=== PATIENT | male | born 1970 | race Caucasian/White ===

== ENCOUNTER → 2017-12-21 06:55 | Outpatient (CLI) | payer OTHER, SELFPAY ==
--- NOTE | 2017-12-21 10:55 | NEURO_ITS ---
NCS and/or EMG Patient Report Ordering Doctor: Divina Hardy DATE OF SERVICE: 12/21/17 This is a bilateral upper extremity nerve conduction study performed on this 47- year-old female with a history of sensations in her hands bilaterally worse on the right side which awaken her from sleep, present for 2 years. There is no neck pain. Bilateral upper extremity sensory and motor nerve conduction studies performed. The median motor and sensory distal latencies are prolonged bilaterally more so on the right side. Amplitudes are preserved however conduction velocities are slowed again more so on the right side. The ulnar motor and sensory and radial sensory responses are normal bilaterally. The median F-wave latencies are prolonged compared to the ulnar F wave latencies. Impression: This is an abnormal electrophysiologic study of the bilateral upper extremities consistent with severe carpal tunnel syndrome bilaterally worse on the right side.
== END ==
PROVIDERS: Family Provider Family Medicine; PCP Family Medicine; Visit Provider Family Medicine
DX: G56.03 Carpal tunnel syndrome, bilateral upper limbs (principal)
CPT/HCPCS: 95911

== ENCOUNTER → 2023-06-07 | Outpatient (CLI) | payer OTHER, MEDICAID, SELFPAY ==
--- OUTSIDE RECORDS SUMMARY | 2023-05-10 12:52 | XMS RPT_ITS | CCD ---
Author Name Unknown Address [address] [place] [address] Organization [facility] Care Team Providers Care Wood Die Maker Name Role Phone Antony DO, [facility] Pro vider MICHAEL CERNA Admitting Unavailab le MICHAEL CERNA Attending Unavailab le SHEETS, [facility] Primary Care Kita vailable SALINASMIKE Attending Unavailable SHEETS, [facility] Primary Care Kita vailable SALINASMIKE Admitting Unavailable SALINAS, MIKE HARRINGTON Referring Unavailable SHEETS, [facility] Primary Care Kita vailable SALINASMIKE Admitting Unavailable SALINAS, MIKE HARRINGTON Referring Unavailable SHEETS, [facility] Primary Care Kita vailable SALINASMIKE THOMPSON Attending Unavailable SHEETS, [facility] Primary Care Kita vailable HUSAM GOODWIN Attending Unavailable SHEETS, [facility] Primary Care Kita vailable MICHAEL CERNA Attending Unavailab le SHEETS, [facility] Primary Care Kita vailable BRUCE JR., SKY Attending Unavailable SHEETS, [facility] Primary Care Kita vailable BRUCE JR., SKY Admitting Unavailable BRUCE JR., SKY Referring Unavailable SHEETS, [facility] Primary Care Kita vailable BRUCE JR., SKY Admitting Unavailable BRUCE JR., SKY Referring Unavailable SHEETS, [facility] Primary Care Kita vailable MICHAEL CERNA Attending Unavailab le SHEETS, [facility] Primary Care Kita vailable BRUCE JR., SKY Attending Unavailable SHEETS, [facility] Primary Care Kita vailable Sheets DO, Kathleen Crane Primary Care Provider Sheets DO, Kathleen Crane Primary Care Provider [phone] Sheets DO, Kathleen Crane Primary Care Provider PROVIDER, UNKNOWN Referring Unavailable SHEETS, KATHLEEN Crane Primary Care Unavailable VALELIZABETH Attending Unavailable JUSTIN WHITNEY Referring Unavailable SHEETS, KATHLEEN Crane Primary Care Unavailable JUSTIN WHITNEY Referring Unavailable SHEETS, KATHLEEN C Primary Care Unavailable Sheets DO, Kathleen Crane Primary Care Provider SHEETS, KATHLEEN C Primary Care Unavailable OLLIE, OANH A Referring Unavailable OLLIE, OANH A Attending Unavailable SHEETS, KATHLEEN Crane Attending Unavailable SHEETS, KATHLEEN Crane Primary Care Unavailable SHEETS, KATHLEEN Crane Attending Unavailable SHEETS, KATHLEEN Crane Primary Care Unavailable Allergies Allergy Classification Reported Allergen(s) Allergy Type Date of Onset Reaction(s) Facility (20 sources) Menthol; Translations: [MENTHOL] Drug Allergy 2 Unknown [facility] (13 sources) Non-steroidal anti-inflammator y agent; Translations: [NSAIDS (NON-STEROIDAL ANTI-INFLAMMATOR Y DRUG)] Propensity to adverse reactions to drug 6 Unknown [facility] (12 sources) Non-steroidal anti-inflammator y agent Propensity to adverse reactions to drug 6 Unknown [facility] Medications Current Medications Medication Drug Class(es) Dates Sig (Normalized) Sig (Original) acetaminophen 325 mg oral tablet (2 sources) End: 07-16-2021 take 2 tablets by mouth every six hours as needed acetaminophen (TYLENOL) 325 mg tablet Take 650 mg by mouth every 6 hours as needed. 0 07/16/2021 Discontinued (Other) Completed/Discontinued Medications Medication Drug Class(es) Dates Sig (Normalized) Sig (Original) bisacodyl 5 mg delayed release oral tablet (7 sources) Stimulant Laxative Start: 06-25-2021 End: 12-19-2021 Bisacodyl (DULCOLAX) 5 mg tab Use as directed for Miralax / Gatorade Bowel Prep Kit 4 tablet 0 06/25/2021 12/19/2021 Discontinued (Course of therapy completed) Problems Active Problems Problem Classification Problem Date Documented Da te Episodic/Chronic Acquired foot deformities (1 source) Bunion; Translations: [Bunion of left foot] Episodic Acquired foot deformities (1 source) Bunion; Translations: [Bunion of right foot] Episodic Essential hypertension (20 sources) Essential hypertension; Translations: [Essential (primary) hypertension] Onset: 04-17-2016 02-18-2021 Chronic Nonspecific chest pain (3 sources) Chest pain; Translations: [Chest pain, unspecified] Onset: 12-18-2021 Episodic Osteoarthritis (1 source) Bilateral osteoarthritis of feet; Translations: [Primary osteoarthritis, right ankle and foot] Chronic Other ear and sense organ disorders (20 sources) Sensorineural hearing loss, bilateral; Translations: [Sensorineural hearing loss, bilateral] Onset: 03-23-2018 02-18-2021 Chronic Other ear and sense organ disorders (15 sources) Otitis externa of left ear; Translations: [Unspecified otitis externa, left ear] Onset: 06-13-2021 06-13-2021 Chronic Other gastrointestinal disorders (1 source) Heartburn; Translations: [Heartburn] Episodic Other liver diseases (15 sources) Steatosis of liver; Translations: [Fatty (change of) liver, not elsewhere classified] Onset: 07-16-2021 Chronic Other liver diseases (1 source) Fatty (change of) liver, not elsewhere classified; Translations: [Fatty liver] Onset: 07-16-2021 Chronic Other lower respiratory disease (1 source) Respiratory tract infection; Translations: [Other specified respiratory disorders] Episodic Other male genital disorders (19 sources) Secondary erectile dysfunction; Translations: [Male erectile dysfunction, unspecified] Onset: 11-06-2016 02-18-2021 Chronic Other nervous system disorders (20 sources) Bilateral carpal tunnel syndrome; Translations: [Carpal tunnel syndrome, bilateral upper limbs] Onset: 04-29-2018 Chronic Other nutritional; endocrine; and metabolic disorders (20 sources) Body mass index 40+ - severely obese; Translations: [Morbid (severe) obesity due to excess calories] Onset: 11-19-2017 11-19-2017 Chronic Other nutritional; endocrine; and metabolic disorders (1 source) Body mass index (BMI) 50.0-59.9, adult; Translations: [BMI 50.0-59.9, adult ([facility])] Onset: 02-22-2020 Chronic Other nutritional; endocrine; and metabolic disorders (1 source) Morbid (severe) obesity due to excess calories; Translations: [Obesity, Class III, BMI 40-49.9 (morbid obesity) ([facility])] Onset: 11-19-2017 Chronic Residual codes; unclassified (20 sources) Sleep apnea; Translations: [Sleep apnea, unspecified] Onset: 07-05-2020 02-18-2021 Chronic Residual codes; unclassified (1 source) Sleep apnea, unspecified; Translations: [Sleep apnea, unspecified type] Onset: 07-05-2020 Chronic Past or Other Problems Problem Classification Problem Date Documented Da te Episodic/Chronic Other ear and sense organ disorders (15 sources) Bilateral tinnitus; Translations: [Tinnitus, bilateral] Onset: 03-23-2018 03-23-2018 Episodic Other lower respiratory disease (1 source) Other specified respiratory disorders; Translations: [Respiratory infection] Onset: 06-18-2022 Episodic Other non-traumatic joint disorders (15 sources) Pain in right knee; Translations: [Pain in joint, lower leg] Onset: 02-24-2019 02-24-2019 Episodic Other screening for suspected conditions (not mental disorders or infectious disease) (8 sources) Patient encounter status; Translations: [Encounter for screening for malignant neoplasm of colon] Onset: 07-16-2021 Episodic Other skin disorders (15 sources) Pigmented skin lesion of uncertain nature; Translations: [Disorder of pigmentation, unspecified] Onset: 04-29-2018 04-29-2018 Episodic Residual codes; unclassified (8 sources) Nicotine user; Translations: [Tobacco use] Onset: 06-18-2022 Episodic Residual codes; unclassified (1 source) Tobacco use; Translations: [Nicotine use] Onset: 06-18-2022 Episodic Results Test Name Value Interpretation Reference Range Facil ity Vital Signs Date Time Vital Sign Value Performing Clinician Faci litweston 06-18-2022 07:58-0400 Body height 177.8 cm Kathleen Sheets DO Work Phone: [facility] 06-18-2022 07:58-0400 Body temperature 98.4 [degF] Kathleen Sheets DO Work Phone: [facility] 06-18-2022 07:58-0400 Body weight 166.47 kg Kathleen Sheets DO Work Phone: [facility] 06-18-2022 07:58-0400 Diastolic blood pressure 70 mm[Hg] Kathleen Sheets DO Work Phone: [facility] 06-18-2022 07:58-0400 Heart rate 76 /min Kathleen Sheets DO Work Phone: [facility] 06-18-2022 07:58-0400 Respiratory rate 18 /min Kathleen Sheets DO Work Phone: [facility] 06-18-2022 07:58-0400 SaO2% (BldA) [Mass fraction] 94 % Kathleen Sheets DO Work Phone: [facility] 06-18-2022 07:58-0400 Systolic blood pressure 122 mm[Hg] Kathleen Sheets DO Work Phone: [facility] 12-19-2021 08:00-0400 Body height 177.8 cm Kathleen Sheets DO Work Phone: [facility] 12-19-2021 08:00-0400 Body temperature 98.2 [degF] Kathleen Sheets DO Work Phone: [facility] 12-19-2021 08:00-0400 Body weight 164.29 kg Kathleen Sheets DO Work Phone: [facility] 12-19-2021 08:00-0400 Diastolic blood pressure 72 mm[Hg] Kathleen Sheets DO Work Phone: [facility] 12-19-2021 08:00-0400 Heart rate 80 /min Kathleen Sheets DO Work Phone: [facility] 12-19-2021 08:00-0400 Respiratory rate 18 /min Kathleen Sheets DO Work Phone: [facility] 12-19-2021 08:00-0400 SaO2% (BldA) [Mass fraction] 96 % Kathleen Sheets DO Work Phone: [facility] 12-19-2021 08:00-0400 Systolic blood pressure 120 mm[Hg] Kathleen Hardy DO Work Phone: [facility] 2021 08:24-0400 Body height 177.8 cm Shilpa Kim [employer] Work Phone: [facility] 2021 08:24-0400 Body temperature 98.2 [degF] Shilpa Kim [employer] Work Phone: [facility] 2021 08:24-0400 Body weight 160.57 kg Shilpa Kim [employer] Work Phone: [facility] 2021 08:24-0400 Diastolic blood pressure 60 mm[Hg] Shilpa Kim [employer] Work Phone: [facility] 2021 08:24-0400 Heart rate 73 /min Shilpa Kim [employer] Work Phone: [facility] 2021 08:24-0400 Respiratory rate 18 /min Shilpa Kim [employer] Work Phone: [facility] 2021 08:24-0400 SaO2% (BldA) [Mass fraction] 95 % Shilpa Kim [employer] Work Phone: [facility] 2021 08:24-0400 Systolic blood pressure 100 mm[Hg] Shilpa Kim [employer] Work Phone: [facility] 08-04-2021 11:00-0400 Diastolic blood pressure 51 mm[Hg] Justin Whitney MD Work Phone: [facility] 08-04-2021 11:00-0400 Heart rate 76 /min Justin Whitney MD Work Phone: [facility] 08-04-2021 11:00-0400 SaO2% (BldA) [Mass fraction] 97 % Justin Whitney MD Work Phone: [facility] 08-04-2021 11:00-0400 Systolic blood pressure 98 mm[Hg] Justin Whitney MD Work Phone: [facility] 08-04-2021 10:42-0400 Body temperature 98.4 [degF] Justin Whitney MD Work Phone: [facility] 08-04-2021 08:47-0400 Respiratory rate 18 /min Justin Whitney MD Work Phone: [facility] 07-16-2021 08:09-0400 Body height 180.3 cm Pacc 2 Work Phone: [facility] 07-16-2021 08:09-0400 Body temperature 98.2 [degF] Pacc 2 Work Phone: [facility] 07-16-2021 08:09-0400 Body weight 163.29 kg Pacc 2 Work Phone: [facility] 07-16-2021 08:09-0400 Diastolic blood pressure 70 mm[Hg] Pacc 2 Work Phone: [facility] 07-16-2021 08:09-0400 Heart rate 92 /min Pacc 2 Work Phone: [facility] 07-16-2021 08:09-0400 Respiratory rate 18 /min Pacc 2 Work Phone: [facility] 07-16-2021 08:09-0400 SaO2% (BldA) [Mass fraction] 96 % Pacc 2 Work Phone: [facility] 07-16-2021 08:09-0400 Systolic blood pressure 118 mm[Hg] Pacc 2 Work Phone: [facility] 06-25-2021 08:24-0400 Body height 177.8 cm Justin Whitney MD Work Phone: [facility] 06-25-2021 08:24-0400 Body weight 163.29 kg Justin Whitney MD Work Phone: [facility] 06-25-2021 08:24-0400 Diastolic blood pressure 70 mm[Hg] Justin Whitney MD Work Phone: [facility] 06-25-2021 08:24-0400 Heart rate 90 /min Justin Whitney MD Work Phone: [facility] 06-25-2021 08:24-0400 Systolic blood pressure 108 mm[Hg] Justin Whitney MD Work Phone: [facility] 03-07-2021 14:46-0500 Body temperature 98.2 [degF] Sky Bruce Jr., DPM Work Phone: [facility] 03-07-2021 14:46-0500 Diastolic blood pressure 74 mm[Hg] Sky Bruce Jr., DPM Work Phone: [facility] 03-07-2021 14:46-0500 Heart rate 103 /min Sky Bruce Jr., DPM Work Phone: [facility] 03-07-2021 14:46-0500 Systolic blood pressure 120 mm[Hg] Sky Bruce Jr., DPM Work Phone: [facility] 12-23-2020 14:39-0400 Body height 180.3 cm Mike Salinas CNP Work Phone: [facility] 12-23-2020 14:39-0400 Body mass index (BMI) [Ratio] 48.82 kg/m2 Mike Salinas CNP Work Phone: [facility] 12-23-2020 14:39-0400 Body weight 158.76 kg Mike Salinas CNP Work Phone: [facility] Encounters Encounter Date Encounter Type Care Provider Facility Start: 05-04-2023 End: 05-04-2023 ambulatory KATHLEEN C SHEETS Facility:[facility] Start: 01-29-2023 End: 01-29-2023 ambulatory KATHLEEN C SHEETS Facility:[facility] Start: 01-29-2023 End: 01-29-2023 Patient encounter procedure Oanh Cuellar AUD Work Phone: Audiology Procedures Date Procedure Procedure Detail Performing Clinician Start: 12-18-2021 Cv strs tst xers&/or rx cont ecg trcg only Shilpa Gutierrez Kim [employer] Work Phone: Start: 08-04-2021 Colon ca scrn not hi rsk ind Justin Whitney MD Work Phone: Start: 08-04-2021 Colonoscopy Justin kennedy MD Work Phone: Start: 06-13-2021 Adult depression screening assessment Justin Whitney MD Work Phone: Start: 06-13-2021 Lipid 1996 panel - S philipp or Plasma Trinity Calero AUD Work Phone: H/O: surgery S/p bilateral ca rpal tunnel release Michael Cerna MD Work Phone: Plan of Treatment Date Care Activity Detail Author Start: 09-03-2030 Tetanus vaccination Tetanus: Every 10yrs [facility] Start: 09-03-2030 Urine microalbumin profile [facility] Start: 08-04-2026 Colonoscopy COLONOSCOPY [facility] Start: 08-04-2026 COLORECTAL CANCER SCREENING COLORECTAL CANCER SCREENING [facility] Start: 06-13-2026 Lipid 1996 panel - Serum or Plasma Lipid Screening [facility] Start: 06-13-2026 LIPID SCREEN LIPID SCREEN [facility] Start: 10-10-2024 DIABETES SCREEN DIABETES SCREEN [facility] Start: 10-10-2024 Diabetes Screening Diabetes Screening [facility] Start: 06-13-2024 DIABETES SCREEN DIABETES SCREEN [facility] Start: 06-19-2023 ANNUAL PCP TEAM CHRONIC DISEASE VISIT ANNUAL PCP TEAM CHRONIC DISEASE VISIT [facility] Start: 06-19-2023 BP CONTROLLED (<130/80) BP CONTROLLED (<130/80) [facility] in Start: 01-14-2023 End: 03-16-2023 CBC panel - Blood by Automated count CBC Lab Routine Essential hypertension Expected: 01/14/2023, Expires: 03/16/2023 [facility] Work Phone: Immunizations Immunization Date Immunization Notes Care Provider Ricky joel 09-03-2020 tetanus toxoid, redu robb diphtheria toxoid, and acellular pertussis vaccine, adsorbed Justin Whitney MD Work Phone: [facility] Work Phone: 08-23-2020 tetanus toxoid, redu robb diphtheria toxoid, and acellular pertussis vaccine, adsorbed Justin Whitney MD Work Phone: [facility] 08-01-2020 COVID-19 vaccine, fu ll dose (MODERNA) Justin Whitney MD Work Phone: [facility] 07-04-2020 COVID-19 vaccine (UNSPECIFIED) Justin Whitney MD Work Phone: [facility] 04-05-2010 tetanus toxoid, redu robb diphtheria toxoid, and acellular pertussis vaccine, adsorbed Justin Whitney MD Work Phone: [facility] 11-06-2004 tetanus toxoid, adsorbed Justin Whitney MD Work Phone: [facility] Payers Date Payer Category Payer Unknown [id number] 2020 Unknown [id number] 2020 Unknown [id number] 2020 Unknown [id number] 1969 Unknown [id number] 2.16. [id number] 1969 Unknown [id number] 2.16. [id number] 1969 Unknown [id number] 2.16. [id number] 1969 Unknown [id number] 2.16. [id number] 1969 Unknown [id number] 2.16. [id number] 1969 Unknown [id number] 2.16. [id number] 1969 Unknown [id number] 2.16. [id number] 1969 Unknown [id number] 2.16. [id number] 1969 Unknown [id number] 2.16. [id number] 1969 Unknown [id number] 2.16. [id number] 1969 Unknown [id number] 2.16. [id number] 1969 Unknown [id number] 2.16. [id number] Social History Date Type Detail Facility Start: 12-23-2020 End: 07-16-2021 Tobacco smoking status ILIS Ex-smoker [facility] Start: 12-23-2020 Tobacco use and exposure User of smokeless tobacco [facility] Start: 1970 Sex Assigned At Not on file [facility] Start: 06-15-2021 End: 12-18-2021 Exposure to SARS-CoV-2 (event) Not sure [facility] Start: 04-05-1987 End: 04-05-1996 History of tobacco use Current smoker [facility] History of tobacco use Chews Tobacco [facility] Start: 06-25-2021 End: 06-18-2022 Alcohol intake Ex-drinker (finding) [facility] Start: 04-05-1987 End: 04-05-1996 History of tobacco use Cigarette Smoker [facility] Start: 1970 Sex Assigned At Male C [facility] Start: 07-16-2021 End: 04-30-2022 Cigarettes smoked current (pack per day) - Reported 1 [facility] Work Phone: Start: 07-16-2021 Tobacco use and exposure Former smokeless tobacco user [facility] Start: 04-30-2022 End: 06-18-2022 Tobacco use panel [facility] Work Phone: Adult Depression Screening Assessment 0 [facility] Work Phone: Start: 07-14-2021 Gender identity Identifies as male gender (finding) [facility] Clinical Notes 04-17-2016 to 05-04-2023 Oanh Cuellar AUD - 02/01/2023 8:02 AM EDTTelephone Encounter - Zahra Ervin - 01/29/2023 3:29 PM EDTTelephone Encounter - Coby Khan MA - 01/14/2023 11:51 AM EDTPatient Instructions Note Date & Type Note Facility 05-04-2023 Note HNO ID: [id number] Author: KATHLEEN HARDY, DO Service: ? Author Type: Physician Type: Progress Notes Filed: 05/08/2023 12:21 Note Text: Subjective The history is provided by the patient. Hypertension This is a chronic problem. The current episode started more than 1 year ago. The problem is unchanged. Pertinent negatives include no blurred vision, chest pain, headaches, malaise/fatigue, palpitations or shortness of breath. He has had right shoulder pain recently He has a history of rotator cuff surgery when he was 18, but it dislocated a couple of weeks ago when he was sleeping. The pain is improving, but it still hurts He fell onto his bottom a couple of weeks ago His left hip still hurts, but it is getting better He has been having a hard time sleeping He has taken OTC meds, but they made him feel fuzzy in the morning He uses nicotine gum ALLERGIES Allergen Reactions Menthol Unknown Nsaids (Non-Steroid* Unknown Facial swelling Current Outpatient Medications Medication Sig Dispense Refill triamcinolone acetonide (NASACORT) 55 mcg nasal inhaler Use 2 Sprays in the nose once daily as needed. lisinopril-hydroCHLOROthiazide (ZESTORETIC) 20-25 mg per tablet take 2 tablets by mouth once daily 180 tablet 0 sildenafil (VIAGRA) 50 mg tablet Take 1 tablet by mouth once daily as needed. 6 tablet 11 omeprazole (PRILOSEC) 20 mg capsule Take 1 capsule by mouth once daily. (Patient not taking: Reported on 05/04/2023) 30 capsule 1 No current facility-administered medications for this visit. ACTIVE PROBLEM LIST Essential Hypertension Ed (Erectile Dysfunction) of Organic Origin Obesity, Class III, BMI >= 40 Sensorineural Hearing Loss, Bilateral Tinnitus, Bilateral Carpal Tunnel Syndrome, Bilateral Pigmented Skin Lesion of Uncertain Nature Chronic Pain of Right Knee Bmi 50.0-59.9, Adult ([facility]) Sleep Apnea Left Otitis Externa Fatty Liver Nicotine Use Social History Tobacco Use Smoking status: Former Packs/day: 1 Types: Cigarettes Start date: 04/05/1987 Quit date: 04/05/1996 Years since quittin.0 Smokeless tobacco: Former Types: Chew Tobacco comments: Quit using tobacco; chewing; Start date: 1981; Amount: 1 can per week Vaping Use Vaping Use: Never used Substance Use Topics Alcohol use: Not Currently Comment: Type: beer; Has 6 drinks/week on average Drug use: No Family History Problem Relation Age of Onset Hyperlipidemia Mother Lung Cancer Mother lung Diabetes Father other (Cancer - other) Maternal Grandmother other (Lung cancer) Maternal Grandfather Reviewed past medical history, family history and surgeries. All medications and supplements were reviewed with the patient. Review of Systems Constitutional: Negative for chills, diaphoresis, fever, malaise/fatigue and weight loss. HENT: Negative for ear pain and hearing loss. Eyes: Negative for blurred vision and double vision. Respiratory: Negative for cough and shortness of breath. Cardiovascular: Negative for chest pain, palpitations and leg swelling. Gastrointestinal: Negative for constipation, diarrhea and heartburn. Genitourinary: Negative for dysuria and frequency. Musculoskeletal: Negative for back pain, falls, joint pain and myalgias. Skin: Negative for itching and rash. Neurological: Negative for dizziness, weakness and headaches. Endo/Heme/Allergies: Does not bruise/bleed easily. Psychiatric/Behavioral: Negative for depression and substance abuse. The patient does not have insomnia. Objective BP 122/72 Pulse 85 Temp 36.8 ?C (98.2 ?F) Resp 18 Ht 177.8 cm (5' 10 ) Wt (!) 168.3 kg (371 lb) SpO2 96% BMI 53.23 kg/m? Physical Exam Constitutional: Appearance: Normal appearance. He is obese. HENT: Head: Normocephalic and atraumatic. Nose: Nose normal. Mouth/Throat: Mouth: Mucous membranes are moist. Dentition: Normal dentition. Eyes: General: Lids are normal. Extraocular Movements: Extraocular movements intact. Conjunctiva/sclera: Conjunctivae normal. Pupils: Pupils are equal, round, and reactive to light. Neck: Thyroid: No thyroid mass or thyromegaly. Vascular: No carotid bruit. Trachea: Phonation normal. Cardiovascular: Rate and Rhythm: Normal rate and regular rhythm. Heart sounds: Normal heart sounds. No murmur heard. No friction rub. No gallop. Pulmonary: Effort: Pulmonary effort is normal. Breath sounds: Normal breath sounds. No wheezing or rales. Abdominal: General: Bowel sounds are normal. There is no distension. Palpations: Abdomen is soft. There is no mass. Tenderness: There is no abdominal tenderness. Musculoskeletal: General: No swelling or tenderness. Normal range of motion. Cervical back: Normal range of motion and neck supple. No edema. Lymphadenopathy: Cervical: No cervical adenopathy. Skin: General: Skin is warm and dry. Findings: No erythema or rash. Nails: There is no clubbin (more content not included)... [facility] 02-01-2023 Note HNO ID: [id number] Author: Oanh Cuellar AUD Service: ? Author Type: Spike Machine Feeder Type: Progress Notes Filed: 02/01/2023 8:03 AM Note Text: HEARING AID REPAIR RIGHT: Bob M70 13T SN: [id number] Glue Bone Drier/Dome: 1M/M-vented Repair: 09/06/2020 LANDD: 09/06/2020 LEFT: Bob M70 13T SN: [id number] Glue Bone Drier/Dome: 1M/M-vented Repair: 09/06/2020 LANDD: 09/06/2020 Patient picked up repaired aids from the supervisor front. Jin was not seen by audiology today. Jin paid the $40.00 fee. Return PRN. Tanesha Dial [facility] 02-01-2023 History of Present illness Narrative HEARING AID REPAIR RIGHT: Bob M70 13T SN: [id number] Glue Bone Drier/Dome: 1M/M-vented Repair: 09/06/2020 L& LEFT: Bob M70 13T SN: [id number] Glue Bone Drier/Dome: 1M/M-vented Repair: 09/06/2020 L& Patient picked up repaired aids from the supervisor front. Jin was not seen by audiology today. Jin paid the $40.00 fee. Return PRN. Tanesha Dial documented in this encounter [facility] 01-29-2023 Miscellaneous Notes Patient came to worm picker hearing aide and paid 40.00 we added to your schedule documented in this encounter [facility] 01-14-2023 Miscellaneous Notes PT. Aware. Coby Khan MA Pt due for blood work - order attache Kathleen Hardy DO pharmacy electronically requesting refills as follows: Last seen 06/18/22 . Last refill 06/18/22 . Requested Prescriptions Pending Prescriptions Disp Refills lisinopril-hydroCHLOROthiazide (ZESTORETIC) 20-25 mg per tablet [Pharmacy Med Name: LISINOPRIL-HCTZ 20-25 MG TAB] 180 tablet 1 Sig: take 2 tablets by mouth once daily Please review and advise. Lindsay Linares MA documented in this encounter [facility] 12-22-2022 Miscellaneous Notes Closed, historical. Drop off,placed in box. documented in this encounter [facility] 09-03-2022 Miscellaneous Notes Nicholas Recall Replacement Program form to get patient a new BIPAP placed in Dr. Hardy green folder to be filled out and signed. Lindsay Linares MA documented in this encounter [facility] 09-01-2022 Miscellaneous Notes Durable Medical Equipment Order placed in Dr. Antony mccarthy folder to be filled out and signed. Lindsay Linares MA documented in this encounter [facility] 06-18-2022 Note HNO ID: [id number] Author: Kathleen Hardy, DO Service: ? Author Type: Physician Type: Progress Notes Filed: 06/18/2022 8:30 AM Note Text: SUBJECTIVE: 51 year old male for annual routine checkup. I have fully reviewed the past medical, surgical, social and family history and updated the Histories section of [facility]. Uses nicotine gum He and his are looking into joining a gym He was sick for a couple of days with respiratory illness Started to feel better yesterday Still has a slight cough ALLERGIES Allergen Reactions Menthol Unknown Nsaids (Non-Steroid* Unknown Facial swelling Current Outpatient Medications Medication Sig Dispense Refill lisinopril-hydroCHLOROthiazide (PRINZIDE, ZESTORETIC) 20-25 mg per tablet Take 2 tablets by mouth once daily. 180 tablet 1 sildenafil (VIAGRA) 50 mg tablet Take 1 tablet by mouth once daily as needed. 6 tablet 11 omeprazole (PRILOSEC) 20 mg capsule Take 1 capsule by mouth once daily. (Patient not taking: No sig reported) 30 capsule 1 No current facility-administered medications for this visit. ACTIVE PROBLEM LIST Essential Hypertension Ed (Erectile Dysfunction) of Organic Origin Obesity, Class III, BMI >= 40 Sensorineural Hearing Loss, Bilateral Tinnitus, Bilateral Carpal Tunnel Syndrome, Bilateral Pigmented Skin Lesion of Uncertain Nature Chronic Pain of Right Knee Bmi 50.0-59.9, Adult (Hcc) Sleep Apnea Left Otitis Externa Fatty Liver Social History Tobacco Use Smoking status: Former Packs/day: 1.00 Types: Cigarettes Start date: 04/05/1987 Quit date: 04/05/1996 Years since quittin.2 Smokeless tobacco: Former Types: Chew Tobacco comments: Quit using tobacco; chewing; Start date: 1981; Amount: 1 can per week Vaping Use Vaping Use: Never used Substance Use Topics Alcohol use: Not Currently Comment: Type: beer; Has 6 drinks/week on average Drug use: No Family History Problem Relation Age of Onset Hyperlipidemia Mother Lung Cancer Mother lung Diabetes Father other (Cancer - other) Maternal Grandmother other (Lung cancer) Maternal Grandfather Reviewed past medical history, family history and surgeries. All medications and supplements were reviewed with the patient. REVIEW OF SYSTEMS GENERAL: No weight loss, malaise or fevers HEENT: Negative for frequent or significant headaches, No changes in hearing or vision, no nose bleeds or other nasal problems NECK: Negative for lumps, goiter, pain and significant neck swelling RESPIRATORY: positive for cough, negative for hemoptysis, wheezing, COPD, dyspnea or shortness of breath CARDIOVASCULAR: Negative for chest pain, leg swelling, hypertension, CHF or palpitations GI: No nausea, vomiting, or diarrhea : No history of dysuria, frequency or incontinence MUSCULOSKELETAL: Negative for joint pain or swelling, back pain or muscle pain SKIN: Negative for lesions, rash, and itching PSYCH: Negative for sleep disturbance, mood disorder and recent psychosocial stressors HEMATOLOGY/LYMPHOLOGY: Negative for prolonged bleeding, bruising easily or swollen nodes ENDOCRINE: Negative for cold or heat intolerance, polyuria, polydipsia and goiter NEURO: No history of headaches, syncope, paralysis, seizures or tremors PHYSICAL EXAMINATION: BP 122/70 Pulse 76 Temp 36.9 ?C (98.4 ?F) Resp 18 Ht 177.8 cm (5' 10 ) Wt (!) 166.5 kg (367 lb) SpO2 94% BMI 52.66 kg/m? General appearance: Well appearing, alert, in no acute distress, well-hydrated, well nourished. Skin: Skin color, texture, turgor normal, no suspicious rashes or lesions Head: Normocephalic, no masses, lesions, tenderness or abnormalities Eyes: Anicteric sclera. Pupils are equally round and reactive to light. Extraocular movements are intact. Ears: External ears normal, canals clear Nose/Sinuses: Nares normal, septum midline, mucosa normal, no drainage or sinus tenderness Oropharynx: Lips, mucosa, and tongue normal, teeth and gums normal, oropharynx normal Neck: Supple, no adenopathy; thyroid symmetric, normal size, no bruits Back: Normal exam Lungs: wheezes in bases b/l on expiration Heart: RRR without murmur, gallop, or rubs. No ectopy Abdomen: Normal abdominal exam, Abdomen soft, non-tender. Bowel sounds normal. No masses, organomegaly Extremities: No deformities, edema, skin discoloration, clubbing or cyanosis. Good capillary refill. Musculoskeletal: No joint swelling, deformity, or tenderness Peripheral pulses: Normal Neuro: Gait normal. Reflexes normal and symmetric. Sensation grossly intact. ASSESSMENT/PLAN: 1. Well adult exam - ICD9: V70.0, ICD10: Z00.00 (primary diagnosis) - Counseled on healthy diet and regular exercise 2. Essential hypertension - ICD9: 401.9, ICD10: I10 - good control - Recommended regular aerobic exercise. - Recommend home blood pressure monitoring, to bring results in on next visit - Goal of BP <130/80 (more content not included)... [facility] 06-18-2022 History of Present illness Narrative SUBJECTIVE: 51 year old male for annual routine checkup. I have fully reviewed the past medical, surgical, social and family history and updated the Histories section of [employer]. Uses nicotine gum He and his are looking into joining a gym He was sick for a couple of days with respiratory illness Started to feel better yesterday Still has a slight cough ALLERGIES Allergen Reactions Menthol Unknown Nsaids (Non-Steroid* Unknown Facial swelling Current Outpatient Medications Medication Sig Dispense Refill lisinopril-hydroCHLOROthiazide (PRINZIDE, ZESTORETIC) 20-25 mg per tablet Take 2 tablets by mouth once daily. 180 tablet 1 sildenafil (VIAGRA) 50 mg tablet Take 1 tablet by mouth once daily as needed. 6 tablet 11 omeprazole (PRILOSEC) 20 mg capsule Take 1 capsule by mouth once daily. (Patient not taking: No sig reported) 30 capsule 1 No current facility-administered medications for this visit. ACTIVE PROBLEM LIST Essential Hypertension Ed (Erectile Dysfunction) of Organic Origin Obesity, Class III, BMI >= 40 Sensorineural Hearing Loss, Bilateral Tinnitus, Bilateral Carpal Tunnel Syndrome, Bilateral Pigmented Skin Lesion of Uncertain Nature Chronic Pain of Right Knee Bmi 50.0-59.9, Adult (Hcc) Sleep Apnea Left Otitis Externa Fatty Liver Social History Tobacco Use Smoking status: Former Packs/day: 1.00 Types: Cigarettes Start date: 04/05/1987 Quit date: 04/05/1996 Years since quittin.2 Smokeless tobacco: Former Types: Chew Tobacco comments: Quit using tobacco; chewing; Start date: 1981; Amount: 1 can per week Vaping Use Vaping Use: Never used Substance Use Topics Alcohol use: Not Currently Comment: Type: beer; Has 6 drinks/week on average Drug use: No Family History Problem Relation Age of Onset Hyperlipidemia Mother Lung Cancer Mother lung Diabetes Father other (Cancer - other) Maternal Grandmother other (Lung cancer) Maternal Grandfather Reviewed past medical history, family history and surgeries. All medications and supplements were reviewed with the patient. REVIEW OF SYSTEMS GENERAL: No weight loss, malaise or fevers HEENT: Negative for frequent or significant headaches, No changes in hearing or vision, no nose bleeds or other nasal problems NECK: Negative for lumps, goiter, pain and significant neck swelling RESPIRATORY: positive for cough, negative for hemoptysis, wheezing, COPD, dyspnea or shortness of breath CARDIOVASCULAR: Negative for chest pain, leg swelling, hypertension, CHF or palpitations GI: No nausea, vomiting, or diarrhea : No history of dysuria, frequency or incontinence MUSCULOSKELETAL: Negative for joint pain or swelling, back pain or muscle pain SKIN: Negative for lesions, rash, and itching PSYCH: Negative for sleep disturbance, mood disorder and recent psychosocial stressors HEMATOLOGY/LYMPHOLOGY: Negative for prolonged bleeding, bruising easily or swollen nodes ENDOCRINE: Negative for cold or heat intolerance, polyuria, polydipsia and goiter NEURO: No history of headaches, syncope, paralysis, seizures or tremors PHYSICAL EXAMINATION: BP 122/70 Pulse 76 Temp 36.9 C (98.4 F) Resp 18 Ht 177.8 cm (5' 10 ) Wt (!) 166.5 kg (367 lb) SpO2 94% BMI 52.66 kg/m General appearance: Well appearing, alert, in no acute distress, well-hydrated, well nourished. Skin: Skin color, texture, turgor normal, no suspicious rashes or lesions Head: Normocephalic, no masses, lesions, tenderness or abnormalities Eyes: Anicteric sclera. Pupils are equally round and reactive to light. Extraocular movements are intact. Ears: External ears normal, canals clear Nose/Sinuses: Nares normal, septum midline, mucosa normal, no drainage or sinus tenderness Oropharynx: Lips, mucosa, and tongue normal, teeth and gums normal, oropharynx normal Neck: Supple, no adenopathy; thyroid symmetric, normal size, no bruits Back: Normal exam Lungs: wheezes in bases b/l on expiration Heart: RRR without murmur, gallop, or rubs. No ectopy Abdomen: Normal abdominal exam, Abdomen soft, non-tender. Bowel sounds normal. No masses, organomegaly Extremities: No deformities, edema, skin discoloration, clubbing or cyanosis. Good capillary refill. Musculoskeletal: No joint swelling, deformity, or tenderness Peripheral pulses: Normal Neuro: Gait normal. Reflexes normal and symmetric. Sensation grossly intact. ASSESSMENT/PLAN: 1. Well adult exam - ICD9: V70.0, ICD10: Z00.00 (primary diagnosis) - Counseled on healthy diet and regular exercise 2. Essential hypertension - ICD9: 401.9, ICD10: I10 - good control - Recommended regular aerobic exercise. - Recommend home blood pressure monitoring, to bring results in on next visit - Goal of BP <130/80 - LISINOPRIL 20 MG-HYDROCHLOROTHIAZIDE 25 MG TABLET - LIPID PANEL BASIC 3. Respiratory infection Most likely viral Pt is getting better- no treatment needed 4. Nicotine use - ICD9: 305.1, ICD10: Z72.0 - Cessation encouraged. - Physiologic and physical aspects of tobacco addiction as well as strategies for quitting were discussed. - Counseling was given focusing on the harmful effects of this addiction especially given the patient's medical condition(s) which will be worsened because of the chemicals in tobacco. 5. Screening for prostate cancer - ICD9: V76.44, ICD10: Z12.5 - Counseled on healthy diet and regular exercise - PSA/PROSTSPECAG SCRN 6. 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 Lindsay Linares MA Letter in my folder Kathleen Hardy DO Patient called back stating setting is bipap 20 and epap is 12. Coby Khan MA Patient called stating he needs an order with his BIPAP information on it for when he flies in January. Advised patient we will need to know his BIPAP settings then can put the order in. Was originally ordered by Dr. Hardy in previous EHR [facility]. Lindsay Linares MA documented in this encounter [facility] 12-19-2021 History of Present illness Narrative Subjective HPI Pt here for f/u for chest pain Had stress test yesterday Review of Systems Constitutional: Negative for chills, diaphoresis, fever, malaise/fatigue and weight loss. HENT: Negative for ear pain and hearing loss. Eyes: Negative for blurred vision and double vision. Respiratory: Negative for cough and shortness of breath. Cardiovascular: Negative for chest pain, palpitations and leg swelling. Gastrointestinal: Negative for constipation, diarrhea and heartburn. Genitourinary: Negative for dysuria and frequency. Musculoskeletal: Negative for back pain, falls, joint pain and myalgias. Skin: Negative for itching and rash. Neurological: Negative for dizziness, weakness and headaches. Endo/Heme/Allergies: Does not bruise/bleed easily. Psychiatric/Behavioral: Negative for depression and substance abuse. The patient does not have insomnia. Objective BP 120/72 (BP Site: Right Arm, BP Position: Sitting, BP Cuff Size: Large Adult) Pulse 80 Temp 36.8 C (98.2 F) Resp 18 Ht 177.8 cm (5' 10 ) Wt (!) 164.3 kg (362 lb 3.2 oz) SpO2 96% BMI 51.97 kg/m Physical Exam Constitutional: Appearance: Normal appearance. He is obese. HENT: Head: Normocephalic and atraumatic. Nose: Nose normal. Mouth/Throat: Mouth: Mucous membranes are moist. Dentition: Normal dentition. Eyes: General: Lids are normal. Extraocular Movements: Extraocular movements intact. Conjunctiva/sclera: Conjunctivae normal. Pupils: Pupils are equal, round, and reactive to light. Neck: Thyroid: No thyroid mass or thyromegaly. Vascular: No carotid bruit. Trachea: Phonation normal. Cardiovascular: Rate and Rhythm: Normal rate and regular rhythm. Heart sounds: Normal heart sounds. No murmur heard. No friction rub. No gallop. Pulmonary: Effort: Pulmonary effort is normal. Breath sounds: Normal breath sounds. No wheezing or rales. Abdominal: General: Bowel sounds are normal. There is no distension. Palpations: Abdomen is soft. There is no mass. Tenderness: There is no abdominal tenderness. Musculoskeletal: General: No swelling or tenderness. Normal range of motion. Cervical back: Normal range of motion and neck supple. No edema. Lymphadenopathy: Cervical: No cervical adenopathy. Skin: General: Skin is warm and dry. Findings: No erythema or rash. Nails: There is no clubbing. Neurological: Mental Status: He is alert and oriented to person, place, and time. Cranial Nerves: No cranial nerve deficit. Motor: Motor function is intact. Coordination: Coordination normal. Gait: Gait is intact. Psychiatric: Attention and Perception: Attention normal. Mood and Affect: Mood and affect normal. Speech: Speech normal. Behavior: Behavior normal. Behavior is cooperative. Thought Content: Thought content normal. Cognition and Memory: Cognition and memory normal. Judgment: Judgment normal. ASSESSMENT/PLAN: 1. Essential hypertension - ICD9: 401.9, ICD10: I10 Continue current meds - LISINOPRIL 20 MG-HYDROCHLOROTHIAZIDE 25 MG TABLET Kathleen Hardy DO documented in this encounter [facility] 12-18-2021 Miscellaneous Notes Called pt let him know the results Shaylee Pete MA ----- Message from Shilpa Alvarez APRN.FIRESETTER sent at 12/18/2021 4:33 PM EDT ----- Normal stress test documented in this encounter [facility] 2021 Instructions Shilpa Alvarez APRN.CNP - 2021 9:16 AM EDT ASSESSMENT/PLAN: 1. Chest pain, unspecified type - ICD9: 786.50, ICD10: R07.9 (primary diagnosis) Chest pain of unclear etiology, patient with significant risk factor(s) of Hypertension - Stress testing- see orders - EXERCISE STRESS ECG (WITHOUT IMAGING) - call or go to ER if persists or worsens 2. Heartburn - ICD9: 787.1, ICD10: R12 - will trial omeprazole to see if symptoms heartburn related. - OMEPRAZOLE 20 MG CAPSULE,DELAYED RELEASE Shilpa Alvarez APRN.FIRESETTER documented in this encounter [facility] 2021 History of Present illness Narrative This note was created using NoteWriter. Jsesica Johnson is a 51 year old male patient of Dr Hardy here today for ER follow up for chest pain and SOB. PMH HTN, MART, loss of hearing. Pt presented to ER with CP intermittent x 2 wks. Reports day of ER visit it lasted longer than previous and last about 1 hour. He describe as squeezing pain left chest that is non radiating. It was accompanied with SOB. Work up in ER was negative troponin x2, normal D dimer, unremarkable chest xray, negative COVID test, no electrylyte abnormalities, no anemia or kidney dysfunction. ECG showed sinus tachycardia otherwise unremarkable ECG. Reports he had moved some furniture the week prior to this episode. Denies tenderness in chest. Denies injury during moving of furniture. Reports pain occurs at rest or during movements. He reports he has had 3 episodes of chest discomfort since ER visit. States they last <1 min. Reports last evening he was laying in bed and he felt if coming on. States he just feels pressure. Denies family hx heart problems. EKG INTERPRETATION: Ordered and Reviewed Rhythm: Sinus tachycardia Rate: 110 [place]: Normal axis Intervals: Normal MN interval QRS Complex: Normal (PVCs present) ST Segment: Normal ST-T segments QT Interval: Normal Compared with Prior: None available Interpretation performed by Adelaida Kwong MD ALLERGIES Allergen Reactions Menthol Unknown Nsaids (Non-Steroid* Unknown Facial swelling Current Outpatient Medications Medication Sig Dispense Refill lisinopril-hydroCHLOROthiazide (PRINZIDE, ZESTORETIC) 20-25 mg per tablet Take 2 tablets by mouth once daily. 180 tablet 1 polyethylene glycol 3350 (MIRALAX, GLYCOLAX) 17 gram/dose powder Use as directed for Miralax / Gatorade Bowel Prep Kit 238 g 0 Gatorade Sports Drink Use as directed for Miralax / Gatorade Bowel Prep Kit Bisacodyl (DULCOLAX) 5 mg tab Use as directed for Miralax / Gatorade Bowel Prep Kit 4 tablet 0 sildenafil (VIAGRA) 50 mg tablet Take 1 tablet by mouth once daily as needed. 6 tablet 11 No current facility-administered medications for this visit. ACTIVE PROBLEM LIST Essential Hypertension Ed (Erectile Dysfunction) of Organic Origin Obesity, Class III, BMI >= 40 Sensorineural Hearing Loss, Bilateral Tinnitus, Bilateral Carpal Tunnel Syndrome, Bilateral Pigmented Skin Lesion of Uncertain Nature Chronic Pain of Right Knee Bmi 50.0-59.9, Adult (Hcc) Sleep Apnea Left Otitis Externa Fatty Liver PAST MEDICAL HISTORY Diagnosis Date Allergic rhinitis - Rx for nasacort Benign essential hypertension - continue lisinopril, trial of cardizem cdde Date Essential hypertension - continue current meds H/O hypogonadism Impotence of organic origin - Rx for viagra to be used as needed Incisional hernia - pt working with general surgeon, Dr. Snowden. He is trying to lose weight to get under 300 pounds, so that he can safely have the surgery to repair this hernia. Knee pain - kenalog 60 mg in the left knee joint today Known medical problems Lipoma (clinical) - left posterior neck, refer to Dr. Snowden for evaluation and possible removal Known medical problems Non-pustular psoriasis of hands and feet- pt does not want treatment at this time, consider betamethasone cream in the future Morbid obesity (HCC) - Continue efforts to lose weight including diet and exercise Obstructive sleep apnea syndrome - order for sleep study (with bipap) Otalgia - possibly eustachian tube dysfunction, advised pt to use OTC antihistamine or decongestant for relief PAST SURGICAL HISTORY Procedure Laterality Date BACK SURGERY HX COLONOSCOPY SCREENING HERNIA REPAIR W/MESH 07/30/2016 Recurrent Incisional x 2 PAST SURGICAL HISTORY OF Right 1988 Shoulder Surgery Procedure PAST SURGICAL HISTORY OF 2004 Total disc arthroplasty (artificial disc)-L5 PAST SURGICAL HISTORY OF Right 1983 Treat Elbow Fracture PAST SURGICAL HISTORY OF 2017 neck lipoma surgery PAST SURGICAL HISTORY OF Bilateral 02/2021 carple tunnel surgery Social History Tobacco Use Smoking status: Former Smoker Packs/day: 1.00 Types: Cigarettes Start date: 04/05/1987 Quit date: 04/05/1996 Years since quittin.5 Smokeless tobacco: Former User Types: Chew Tobacco comment: Quit using tobacco; chewing; Start date: 1981; Amount: 1 can per week Vaping Use Vaping Use: Never used Substance Use Topics Alcohol use: Not Currently Comment: Type: beer; Has 6 drinks/week on average Drug use: No Family History Problem Relation Age of Onset Hyperlipidemia Mother Cancer Mother lung Diabetes Father other (Cancer - other) Maternal Grandmother other (Lung cancer) Maternal Grandfather Review of Systems Constitutional: Negative for activity change, appetite change, chills, diaphoresis, fatigue, fever and unexpected weight change. Respiratory: Positive for chest tightness and shortness of breath. Negative for cough and wheezing. See HPI Cardiovascular: Positive for chest pain. Negative for palpitations and leg swelling. Musculoskeletal: Negative for arthralgias and myalgias. Neurological: Negative for dizziness, light-headedness and headaches. Psychiatric/Behavioral: Negative for dysphoric mood. The patient is not nervous/anxious. Objective BP 100/60 (BP Site: Left Arm, BP Position: Sitting, BP Cuff Size: Thigh) Pulse 73 Temp 36.8 C (98.2 F) (Oral) Resp 18 Ht 177.8 cm (5' 10 ) Wt (!) 160.6 kg (354 lb) SpO2 95% BMI 50.79 kg/m Physical Exam Constitutional: General: He is not in acute distress. Appearance: Normal appearance. He is obese. He is not ill-appearing. Cardiovascular: Rate and Rhythm: Normal rate and regular rhythm. Pulses: Normal pulses. Heart sounds: Normal heart sounds, S1 normal and S2 normal. No murmur heard. Pulmonary: Effort: Pulmonary effort is normal. Breath sounds: Normal breath sounds. No decreased breath sounds, wheezing, rhonchi or rales. Chest: Chest wall: No deformity, tenderness or crepitus. Abdominal: General: Abdomen is protuberant. Palpations: Abdomen is soft. Tenderness: There is no abdominal tenderness. There is no guarding or rebound. Musculoskeletal: Right lower leg: No edema. Left lower leg: No edema. Skin: General: Skin is warm and dry. Neurological: Mental Status: He is alert and oriented to person, place, and time. Psychiatric: Mood and Affect: Mood normal. Behavior: Behavior normal. Thought Content: Thought content normal. Judgment: Judgment normal. Component Latest Ref Rng & Units 10/10/2021 10/10/2021 10/10/2021 2:36 PM 2:39 PM 3:57 PM WBC 3.70 - 11.00 k/uL 10.25 RBC 4.20 - 6.00 m/uL 4.88 Hemoglobin 13.0 - 17.0 g/dL 14.9 Hematocrit 39.0 - 51.0 % 43.6 MCV 80.0 - 100.0 fL 89.3 MCH 26.0 - 34.0 pg 30.5 MCHC 30.5 - 36.0 g/dL 34.2 RDW-CV 11.5 - 15.0 % 12.7 Platelet Count 150 - 400 k/uL 297 MPV 9.0 - 12.7 fL 11.4 Neut% % 67.1 Abs Neut (ANC) 1.45 - 7.50 k/uL 6.88 Lymph% % 24.9 Abs Lymph 1.00 - 4.00 k/uL 2.55 Austin% % 5.6 Abs [place] <0.87 k/uL 0.57 Eosin% % 2.0 Abs Eosin <0.46 k/uL 0.21 Baso% % 0.4 Abs Baso <0.11 k/uL 0.04 DTYPE Auto Glucose 74 - 99 mg/dL 167 (H) BUN 9 - 24 mg/dL 13 Creatinine 0.73 - 1.22 mg/dL 0.92 Sodium 136 - 144 mmol/L 138 Potassium 3.7 - 5.1 mmol/L 3.5 (L) Chloride 97 - 105 mmol/L 101 CO2 22 - 30 mmol/L 23 Anion Gap 9 - 18 mmol/L 14 Calcium 8.5 - 10.2 mg/dL 9.6 eGFR >=60 mL/min/1.73m 101 PT Sec 9.7 - 13.0 sec 10.6 PT INR 0.9 - 1.3 1.0 d Dimer <500 ng/mL FEU 310 D Dimer Age-related Cutoff ng/mL FEU 510 Magnesium 1.7 - 2.3 mg/dL 1.9 RONA High Sensitivity <12 ng/L 6 6 NT Pro BNP <125 pg/mL <50 APTT 23.0 - 32.4 sec 25.3 COVID 19 Result Not Detected SARS-CoV-2 (Agent of COVID-19) Not Detected by RT-PCR or equivalent method. ASSESSMENT/PLAN: 1. Chest pain, unspecified type - ICD9: 786.50, ICD10: R07.9 (primary diagnosis) Chest pain of unclear etiology, patient with significant risk factor(s) of Hypertension - Stress testing- see orders - EXERCISE STRESS ECG (WITHOUT IMAGING) - call or go to ER if persists or worsens 2. Heartburn - ICD9: 787.1, ICD10: R12 - will trial omeprazole to see if symptoms heartburn related. - OMEPRAZOLE 20 MG CAPSULE,DELAYED RELEASE Follow up with PCP if persists or worsens Shilpa Alvarez, [employer] P[employer].FIRESETTER I spent a total of 35 minutes on the date of the service which included preparing to see the patient, [id number] patient care, completing clinical documentation, obtaining and/or reviewing separately obtained history, performing a medically appropriate examination, counseling and educating the patient/family/caregiver, ordering medications, tests, or procedures and care coordination (not separately reported). 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 Please read it carefully and save for future reference. PATIENT NAME: Gustavo Johnson ADMISSION DATE: 08/04/2021 DISCHARGE DATE: 08/04/2021 ACTIVITY: Do not drive before tomorrow. The drugs you were given may alter judgement. Please do not endanger yourself. Go home and rest. Resume normal activity after tomorrow. Do not drive a car for 24 hours Do not use power tools or machinery for 24 hours. DIET: Resume normal diet as before. Next colonoscopy in 5 years Electronically SIGNED by Licensed Independent Practitioner: Justin Whitney MD, August 04, 2021 documented in this encounter [facility] 08-04-2021 History and physical note UPDATED HISTORY AND PHYSICAL EXAMINATION SERVICE DATE: 08/04/2021 SERVICE TIME: 10:01 AM PHYSICAL EXAM MUST BE COMPLETED ON ADMISSION The History and Physical (completed in the past 30 days) has been reviewed and the patient has been examined. The contents accurately reflect the patient's condition with the following additions or revisions since the H&P was completed. Examination indicates no changes. This H&P can be found in the Electronic Medical Record. SIGNATURE: Justin Whitney MD PATIENT NAME: Gustavo Johnson DATE: August 04, 2021 TIME: 10:01 AM documented in this encounter [facility] 07-16-2021 Instructions Marcelle Ocasio APRN.FIRESETTER - 07/16/2021 7:58 AM EDT PATIENT PREOPERATIVE INSTRUCTIONS Justin Whitney MD has scheduled you for your procedure at this surgery center: [facility]: [phone] -- [address] [facility] [address]. Please read below carefully for your personalized instructions. Dietary Restrictions: - Follow bowel prep instructions: clear liquids need to be stopped 2 hours prior to schedule arrival at facility Medications: Unless instructed differently below, stay on all of your medications until your surgery. Approved medications to take the morning of surgery with a sip of water: none If you start any new medications after today's visit, please contact the surgeon's office. Blood Thinning Medications: - Stop NSAIDS (Ibuprofen, Advil, Aleve, Motrin, Celebrex, Mobic, etc.) 7 days before surgery, as directed by your surgeon. - Stop Aspirin 7 days before surgery, as directed by your surgeon. - Stop Vitamin E, ALL multi-vitamins, herbals and dietary supplements 7 days before surgery. - You may take Tylenol (Acetaminophen) or any of your pain medications that do not contain aspirin or NSAIDS as needed. Important Reminders: - If you use CPAP/BIPAP, bring the machine with you to the surgery center. - Candy, mints, and tobacco products are NOT permitted the morning of surgery. - Hearing aids, dentures and glasses may be worn the morning of surgery. - NO jewelry, body piercings, makeup, hairpins or contacts are to be worn the day of surgery. If you develop symptoms such as a fever, cold, or flu, or have other changes to your health within TWO DAYS of scheduled surgery or the morning of surgery, please contact the surgery center above. Personal Belongings: -Please have photo ID and insurance cards. -If you do not have a copy of advance directives on file with us, please bring a copy with you on the day of surgery. - Leave ALL valuables and money at home or with family members. For Outpatient Procedures: - YOU MUST HAVE A RESPONSIBLE WELT SLASHER TAKE YOU HOME. A HOSPICE MASSAGE THERAPIST OR INTERNET CONSULTANT CANNOT BE MADE A RESPONSIBLE WELT SLASHER. - We recommend that a responsible person stays with you overnight to take care of you. - You cannot stay in a hotel alone after outpatient surgery. You will not be permitted to have your surgery, if you do not have someone to take care of you. Arrival Time for Surgery: - The Surgery Center or hospital where you are having surgery will call the afternoon before surgery (or Wednesday for Wednesday surgery) with a scheduled arrival time. - If you have not heard by 4 pm, please contact the surgery center above. Please be aware that emergency situations arise, which may delay or change your surgical time. If this happens, we will notify you as soon as possible and regret any inconvenience. If you already have an Advance Directive, please fax a copy to [phone] or email to for it to be added to your chart. If you do not have an Advance Directive, you can find the appropriate form and more information at [email or web address]. We recommend that you complete the Advance Directive form found on the website and bring it with you the day of your surgery. It can be witnessed and scanned into your chart that day. Marcelle Ocasio APRN.QI documented in this encounter [facility] 07-16-2021 History and physical note HISTORY AND PHYSICAL EXAMINATION SERVICE DATE: 07/16/2021 SERVICE TIME: 8:20 am PRIMARY CARE PHYSICIAN: Kathleen Hardy DO REASON FOR VISIT: Gustavo Johnson is a 50 year old male who is scheduled for colonoscopy at the request of Dr. Whitney for consultation. My final recommendation will be communicated back to the requesting physician by way of shared medical record or letter. Subjective The patient has the following: ACTIVE PROBLEM LIST Essential Hypertension Ed (Erectile Dysfunction) of Organic Origin Obesity, Class III, BMI >= 40 Sensorineural Hearing Loss, Bilateral Tinnitus, Bilateral Carpal Tunnel Syndrome, Bilateral Pigmented Skin Lesion of Uncertain Nature Chronic Pain of Right Knee Bmi 50.0-59.9, Adult (Hcc) Sleep Apnea Left Otitis Externa Fatty Liver COVID-19 Immunization Status COVID-19 VACCINE (Series Information) Completed 03/11/2021 Imm Admin: COVID-19 vaccine, full dose (MODERNA) 08/01/2020 Imm Admin: COVID-19 vaccine (MODERNA) 07/04/2020 Imm Admin: COVID-19 vaccine (UNSPECIFIED) CHIEF COMPLAINT: Pre-op evaluation HPI: 50 year old male here for pre-op evaluation for colonscopy scheduled on 08/04. Patient had first colonoscopy at 34 years old that was normal per patient. Denies any abdominal pain, nausea, vomiting, bloody or black tarry stools. REVIEW OF SYSTEMS: General: No weight loss, malaise or fevers. Neurological: No history of TIA's, stroke, METER SETTER tumor, impaired sensorium, hemiplegia, paraplegia or quadraplegia. No neurological symptoms or problems. Respiratory: Positive for: obstructive sleep apnea (uses nightly bipap). Negative for: asthma, COPD, dyspnea and tobacco use. Cardiovascular: Positive for: hypertension (on rx) Negative for: angina, arrhythmia, atrial fibrillation, chest pain, DVT/PE, hyperlipidemia and murmur/valvular heart disease. GI: See HPI, US 06/19/21 showed mildly dilated bile duct. Patient to have follow up imaging. Positive for: liver disease (Fatty liver 06/19/21) : No history of dysuria, frequency or incontinence, stones or chronic kidney disease. No difficulty urinating, nocturia > 1 time per night or hematuria. Endocrine: No history of diabetes. Has not taken steroids within the past 30 days. No history of endocrinological symptoms or problems. Hematology: No history of bleeding or clotting disorder. Patient is not taking anti-coagulation or platelet medications. No history of hematological symptoms or problems. Oncology: No history of CA metastasis, chemo within 30 days, or radiotherapy within 90 days. No history of oncological symptoms or problems. Psych: No history of psychiatric symptoms or problems. Musculoskeletal: Positive for: joint pain (Bilateral knees). Negative for: swelling. Skin: Negative for lesions, rash and itching. PAST MEDICAL HISTORY Diagnosis Date Allergic rhinitis - Rx for nasacort Benign essential hypertension - continue lisinopril, trial of cardizem cdde Date Essential hypertension - continue current meds H/O hypogonadism Impotence of organic origin - Rx for viagra to be used as needed Incisional hernia - pt working with general surgeon, Dr. Snowden. He is trying to lose weight to get under 300 pounds, so that he can safely have the surgery to repair this hernia. Knee pain - kenalog 60 mg in the left knee joint today Known medical problems Lipoma (clinical) - left posterior neck, refer to Dr. Snowden for evaluation and possible removal Known medical problems Non-pustular psoriasis of hands and feet- pt does not want treatment at this time, consider betamethasone cream in the future Morbid obesity (HCC) - Continue efforts to lose weight including diet and exercise Obstructive sleep apnea syndrome - order for sleep study (with bipap) Otalgia - possibly eustachian tube dysfunction, advised pt to use OTC antihistamine or decongestant for relief PAST SURGICAL HISTORY Procedure Laterality Date COLONOSCOPY SCREENING HERNIA REPAIR W/MESH 07/30/2016 Recurrent Incisional x 2 PAST SURGICAL HISTORY OF Right 1988 Shoulder Surgery Procedure PAST SURGICAL HISTORY OF 2004 Total disc arthroplasty (artificial disc)-L5 PAST SURGICAL HISTORY OF Right 1983 Treat Elbow Fracture PAST SURGICAL HISTORY OF 2016 neck lipoma surgery PAST SURGICAL HISTORY OF Bilateral 02/2021 carple tunnel surgery FAMILY HISTORY Problem Relation Age of Onset Hyperlipidemia Mother Cancer Mother lung Diabetes Father other (Cancer - other) Maternal Grandmother other (Lung cancer) Maternal Grandfather Social History Tobacco Use Smoking status: Former Smoker Packs/day: 1.00 Types: Cigarettes Start date: 04/05/1987 Quit date: 04/05/1996 Years since quittin.2 Smokeless tobacco: Former User Types: Chew Tobacco comment: Quit using tobacco; chewing; Start date: 1981; Amount: 1 can per week Vaping Use Vaping Use: Never used Substance Use Topics Alcohol use: Not Currently Comment: Type: beer; Has 6 drinks/week on average Drug use: No Prior to Admission medications as of 07/16/21 0820 Medication Sig Last Dose Taking lisinopril-hydroCHLOROthiazide (PRINZIDE, ZESTORETIC) 20-25 mg per tablet Take 2 tablets by mouth once daily. Taking Yes sildenafil (VIAGRA) 50 mg tablet Take 1 tablet by mouth once daily as needed. Taking Yes polyethylene glycol 3350 (MIRALAX, GLYCOLAX) 17 gram/dose powder Use as directed for Miralax / Gatorade Bowel Prep Kit Gatorade Sports Drink Use as directed for Miralax / Gatorade Bowel Prep Kit Bisacodyl (DULCOLAX) 5 mg tab Use as directed for Miralax / Gatorade Bowel Prep Kit No medication comments found. ALLERGIES Allergen Reactions Menthol Unknown Nsaids (Non-Steroid* Unknown Facial swelling Objective PHYSICAL EXAM: General: alert and oriented and morbidly obese. Pertinent negatives noted - not distressed. Skin: normal color, no rash or lesions. HEENT: pupils equal round and pupils reactive to light. Pertinent negatives noted - no carotid bruit. Cardiovascular: regular rate and rhythm, normal S1 and S2, no rub, murmurs, or gallop. Respiratory: normal breath sounds, no wheezes or crackles. Abdomen: soft. Pertinent negatives noted - not tender. Extremities: no deformity, no edema or tenderness, no joint swelling or clubbing. Neurological: normal cognition and motor skills. Gait normal. No weakness or sensory deficit. PAIN ASSESSMENT: VITALS: BP 118/70 Pulse 92 Temp 98.2 Resp 18 Ht 5' 11 (1.80m) Wt 360 lb (163.3kg) SpO2 96% BMI 50.23 kg/(m^2). Diagnostic tests reviewed for today's visit: Lab Value Units Date High Low HB 15.4 g/dL 06/13/2021 17.0 13.0 HCT 44.3 % 06/13/2021 51.0 39.0 WBC 8.34 k/uL 06/13/2021 11.00 3.70 PLT 284 k/uL 06/13/2021 400 150 NA 140 mmol/L 06/13/2021 144 136 K 4.6 mmol/L 06/13/2021 5.1 3.7 GLUC 112 mg/dL 06/13/2021 99 74 BUN 14 mg/dL 06/13/2021 24 9 CREAT 0.96 mg/dL 06/13/2021 1.22 0.73 PTSEC No results within date range. INR No results within date range. APTT No results within date range. ALT 70 U/L 06/13/2021 54 10 AST 37 U/L 06/13/2021 40 14 TBILI 0.4 mg/dL 06/13/2021 1.3 0.2 TSH No results within date range. Lab Value Units Date High Low HCGQT No results within date range. UHCG No results within date range. HCG, BODY* No results within date range. Lab Value Units Date High Low ABORHD No results within date range. ABSCREEN No results within date range. No results found for: HBA1C No results found for this or any previous visit (from the past 8760 hour(s)). No results found for this or any previous visit (from the past 84858 hour(s)). Assessment Essential hypertension Assessment: on rx Last 3 Encounter BP Readings: Date: BP: 07/16/2021 118/70 06/25/2021 108/70 06/13/2021 120/70 Sleep apnea Assessment: uses nightly bipap Fatty liver Assessment: Fatty liver found on US 06/19/21 BMI 50.0-59.9, adult (HCC) Assessment: Body mass index is 50.21 kg/m . METS: Climb a flight of stairs or walk up a hill (5.50 METs) DASI Score: 5.5; Patient denies any chest pain or undue shortness of breath with the above physical activity. Clinical Frailty Scale: 3. Well, with treated comorbid disease ASA Class: 3 ANESTHESIA FINDINGS: Intubation History: No history of difficult intubation. No abnormal airway history Significant Anesthesia Considerations: none Airway History: No history of difficult airway No abnormal airway history [id number] Score: Age: <65 Sex: Male CHF history: No Hypertension history: Yes Stroke/TIA/thromboembolism history: No Vascular disease history: No Diabetes history: No Score: 1 I - PHYSICAL EVALUATION AIRWAY Tracheostomy tube not present Mallampati: IV. TM distance: >3 FB. Neck ROM: full ROM without neurological symptoms. Mouth opening: adequate. Short neck: yes. Thick neck: yes DENTAL Dental findings: teeth intact and missing tooth/teeth. Dentures, lower: partial. II - ANESTHESIA PLAN ASA Score: 3 Anesthetic Plan: MAC Prepared for Surgery: optimally prepared for surgery. CONSULTS: Patient does not require consults for optimization at this time The Following Tests/Procedures Have Been Initiated: No orders of the defined types were placed in this encounter. Planned Anesthetic: MAC Instructions Given to Patient: Instructions located in the after visit summary. Patient given verbal and written preop instructions and voices comprehension and compliance. SIGNATURE: Marcelle Ocasio APRN.CNP PATIENT NAME: Gustavo Johnson DATE: July 16, 2021 TIME: 7:55 AM PAGER/CONTACT #: documented in this encounter [facility] 06-25-2021 Instructions Justin Whitney MD - 06/25/2021 8:55 AM EDT Images from the original note were not included. Bowel Preparation Instructions for: Miralax-Gatorade Preparations IF YOU DO NOT FOLLOW THESE DIRECTIONS, YOUR COLONOSCOPY WILL BE CANCELLED. [place] Instructions: Your bowel must be empty so that your doctor can clearly view your colon. Follow all of the instructions in this handout EXACTLY as they are written. Do NOT eat any solid food the ENTIRE day before your colonoscopy. Buy your bowel preparation at least 5 days before your colonoscopy. Four (4) Dulcolax laxative tablets containing 5mg of bisacodyl each (NOT Dulcolax stool softener) One (1) 8.3oz. bottle Miralax (238 grams) or generic equivalent 2 x 32oz. Bottles of Gatorade (NOT RED) Diabetic Patients: Use G2 (Gatorade 2) TRANSPORTATION on the Day of Your Exam A responsible adult MUST be present with you at Check In prior to your colonoscopy and REMAIN in the endoscopy area until you are discharged. You are NOT ALLOWED to drive, take a taxi or bus, or leave the Endoscopy Center ALONE. If you do not have a responsible local bulk driver (family member or friend) with you to take you home, your exam cannot be done with sedation and will be cancelled. Please bring a list of all of your current medications, including any [id number] medications with you. Medications If you take insulin, diabetic medications or blood thinners such as Coumadin (warfarin), Plavix (clopidogrel), Ticlid (ticlopidine hydrochloride), Agrylin (anagrelide), Xarelto (Rivaroxaban), Pradaxa (Dabigatran), Eliquis (Apixaban), and Effient (Prasugrel). You MUST call the doctors who orders those medicines for instructions on altering the dosage before your colonoscopy. All other medications should be taken the day of the exam with a sip of water including ASPIRIN. Five (5) Days Before Your Colonoscopy Do NOT take medicines that stop diarrhea - such as Imodium, Kaopectate, or Pepto Bismol. Do NOT take fiber supplements - such as Metamucil, Citrucel, or Perdiem. Do NOT take products that contain iron - such as multi-vitamins (the label lists what is in the products). Three (3) Days Before Your Colonoscopy Do NOT eat high-fiber foods - such as popcorn, beans, seeds (flax, sunflower, quinoa), multigrain bread, nuts, salad/vegetables, or fresh and dried fruit. 2 Bowel Preparation Instructions for: Miralax-Gatorade Preparations One (1) Day Before Your Colonoscopy Only drink clear liquids the ENTIRE DAY before your colonoscopy. Do NOT eat any solid foods. Drink at least 8 ounces of clear liquids every hour after waking up. The clear liquids you can drink include: Clear Liquid (NO RED LIQUIDS) DO NOT DRINK Gatorade, Pedialyte or Powerade Clear broth or bouillon Coffee or tea (no milk or non-dairy creamer) Carbonated and non-carbonated soft drinks Nathan-Aid or other fruit flavored drinks Strained fruit juices (no pulp) Jell-O, popsicles, hard candy Water Alcohol Milk or non-dairy creamers Noodles or vegetables in soup Juice with pulp Liquid you cannot see through Mix 1/2 of Miralax bottle (119 grams) in each 32 ounces of Gatorade bottle until dissolved. Keep cool in the refrigerator. DO NOT ADD ICE. The bowel preparation solution will be consumed in two parts. Part 1 5:00 PM - Evening before your colonoscopy Take 4 Dulcolax tablets. 6 PM - Evening before your colonoscopy Drink 32 oz. of the mixed solution. Drink an 8 oz. glass of bowel preparation every 15 minutes for a total of 4 glasses. Fifteen (15) minutes later, drink an 8 oz. glass of of clear liquids every 15 minutes for a total of 2 glasses. You may continue to drink clear liquids till midnight. Part 2 On the day of your colonoscopy you may drink clear liquids up to (three) 3 hours prior to procedure. 4 1/2 hours before your colonoscopy Take another 32 oz. bottle of mixed solution. Drink an 8 oz. glass of bowel prep every 15 minutes for a total of 4 glasses. Fifteen (15) minutes later, drink an 8 oz. glass of clear liquids every 15 minutes for a total of 2 glasses. You may continue to drink clear liquids up to (three) 3 hours before your exam. 3 03/2019 documented in this encounter [facility] 06-25-2021 History of Present illness Narrative PROGRESS NOTES PATIENT NAME: Gustavo Johnson Assessment ASSESSMENT AND PLAN The patient is a 50-year-old male in need of a screening colonoscopy. We discussed the details of the planned procedure including the risks benefits and alternatives. He wishes to proceed. This will be scheduled in a timely manner. SUBJECTIVE CHIEF COMPLAINT: Patient presents with: Consult: colonoscopy INTERVAL HISTORY OF PRESENT ILLNESS: The patient is a 50-year-old male who is being seen today to set up a screening colonoscopy. He has no family history of colon polyps or colon cancer. He had a previous colonoscopy about 15 years ago that was unremarkable. He denies any GI issues or complaints currently. GENERAL:No weight loss, malaise or fevers., See HPI HEENT:Negative for frequent or significant headaches, No changes in hearing or vision, no nose bleeds or other nasal problems CARDIOVASCULAR: Negative for chest pain, Negative for leg swelling, Negative for palpitaions SKIN:Negative for lesions, rash, and itching. RESPIRATORY: Negative for cough, wheezing or shortness of breath . GASTROINTESTINAL: Positive for: and Rectal bleeding or blood in stool GENITOURINARY: No history of dysuria, frequency or incontinence. ENDOCRINE: None MUSCULOSKELETAL: Negative for joint pain or swelling, back pain or muscle pain. NEUROLOGIC:Negative for focal numbness or weakness, headaches and dizziness or syncope. HEMATOLOGIC/LYMPHATIC/IMMUNOLOGI C:Negative for prolonged bleeding, bruising easily or swollen nodes. I have reviewed and agree with the Review of Systems. Justin Whitney MD HISTORIES: PAST MEDICAL HISTORY Diagnosis Date Allergic rhinitis - Rx for nasacort Benign essential hypertension - continue lisinopril, trial of cardizem cdde Date Essential hypertension - continue current meds H/O hypogonadism Impotence of organic origin - Rx for viagra to be used as needed Incisional hernia - pt working with general surgeon, Dr. Snowden. He is trying to lose weight to get under 300 pounds, so that he can safely have the surgery to repair this hernia. Knee pain - kenalog 60 mg in the left knee joint today Known medical problems Lipoma (clinical) - left posterior neck, refer to Dr. Snowden for evaluation and possible removal Known medical problems Non-pustular psoriasis of hands and feet- pt does not want treatment at this time, consider betamethasone cream in the future Morbid obesity (HCC) - Continue efforts to lose weight including diet and exercise Obstructive sleep apnea syndrome - order for sleep study (with bipap) Otalgia - possibly eustachian tube dysfunction, advised pt to use OTC antihistamine or decongestant for relief PAST SURGICAL HISTORY Procedure Laterality Date HERNIA REPAIR W/MESH 07/30/2016 Recurrent Incisional PAST SURGICAL HISTORY OF Right 1988 Shoulder Surgery Procedure PAST SURGICAL HISTORY OF 2004 Total disc arthroplasty (artificial disc)-L5 PAST SURGICAL HISTORY OF Right 1983 Treat Elbow Fracture PAST SURGICAL HISTORY OF 2016 neck lipoma surgery ALLERGIES: Menthol and Nsaids (Non-Steroidal Anti-Inflammatory Drug) MEDICATIONS: Current Outpatient Medications Medication Sig acetaminophen (TYLENOL) 325 mg tablet Take 650 mg by mouth every 6 hours as needed. lisinopril-hydroCHLOROthiazide (PRINZIDE, ZESTORETIC) 20-25 mg per tablet Take 2 tablets by mouth once daily. sildenafil (VIAGRA) 50 mg tablet Take 1 tablet by mouth once daily as needed. triamcinolone acetonide (NASACORT AQ) 55 mcg nasal inhaler Use 2 Sprays in the nose as needed. No current facility-administered medications for this visit. FAMILY HISTORY Problem Relation Age of Onset Hyperlipidemia Mother Cancer Mother lung Diabetes Father other (Cancer - other) Maternal Grandmother other (Lung cancer) Maternal Grandfather Social History Tobacco Use Smoking status: Former Smoker Start date: 04/05/1987 Quit date: 04/05/1996 Years since quittin.2 Smokeless tobacco: Former User Types: Chew Tobacco comment: Quit using tobacco; chewing; Start date: 1981; Amount: 1 can per week Substance Use Topics Alcohol use: Not Currently Comment: Type: beer; Has 6 drinks/week on average Drug use: No OBJECTIVE PHYSICAL EXAM: There were no vitals taken for this visit. GENERAL: Alert, no distress, cooperative, Morbidly Obese EYES: PERRLA, EOMI LUNGS: Lungs clear to auscultation, Good diaphragmatic excursion CARDIAC: Normal S1 and S2; no rubs, murmurs, or gallops ABDOMEN: Abdomen soft, non-tender, BS normal, No masses or organomegaly DATA: Diagnostic tests reviewed for today's visit: No new labs Justin Whitney MD documented in this encounter [facility] 03-07-2021 History of Present illness Narrative HPI Chief Complaint Patient presents with Foot Orthotics Patient would like new orthotics. His previous orthotic are 3 years old. Patient has bunions. States they are not painful. Toes are squished together . Patient is a pleasant 50-year-old male who comes in today for bilateral foot and ankle pain. States that he has been a longtime orthotic wear and needs a new set. He was previously seeing Dr. Schmidt who is now retired out of [place]. Last got up a set of orthotics 3 years ago and states he needs a new pair. Also is curious about surgery if it is a possibility. States that he has had bunions for many many years and they are only getting worse with time. Additionally states that he feels quite squished in his toe box. 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 Past Medical History: Diagnosis Date Hypertension MART treated with BiPAP Past Surgical History: Procedure Laterality Date CARPAL TUNNEL RELEASE OPEN Bilateral 02/28/2021 Procedure: Bilateral carpal tunnel release; Surgeon: Michael Cerna MD; Location: Main OR; Service: Orthopedic ELBOW SURGERY Right HERNIA REPAIR HERNIA REPAIR SHOULDER SURGERY Right Social History Socioeconomic History Marital status: Tobacco Use Smoking status: Former Smoker Smokeless tobacco: Current User Review of Systems Constitutional: Negative for chills and fever. Respiratory: Negative for chest tightness and shortness of breath. Cardiovascular: Negative for chest pain, palpitations and leg swelling. Musculoskeletal: Positive for arthralgias and joint swelling. Skin: Negative for color change and wound. Physical Exam -Patient is AOx3. Linear and appropriate humor and thought process. Vascular: DP PT pulses are easily palpable 2-4. CFT is fair no edema. Derm: Mild erythema medially over the left and right first MPJ. No open wounds ulcers or rashes. Neuro: Light touch is normal Babinski's is normal. Musculoskeletal: Substantial pain at the first MPJ with attempted straightening. Moderate to severe abductovalgus deformity. IPJ is full and pain-free minimal second digit pain. Otherwise ankle midtarsal is full and pain-free. X-rays AP oblique lateral: Moderate to severe hallux abductovalgus deformity with near 40 degrees of H IPJ deformity and an intermetatarsal angle of greater than 15. No fractures no dislocations no subluxations. Mild hammertoe. Right foot: Moderate to severe hallux abductovalgus deformity with near 40 degrees of H IPJ deformity and an intermetatarsal angle of greater than 15. No fractures no dislocations no subluxations. Impression/Plan Problem List Items Addressed This Visit None Visit Diagnoses Primary osteoarthritis of both feet - Primary Relevant Orders Miscellaneous DME Equipment Bunion of great toe of left foot Relevant Orders Miscellaneous DME Equipment Bunion of great toe of right foot Relevant Orders Miscellaneous DME Equipment Patient is a pleasant 50-year-old male with moderate to severe bilateral hallux abductovalgus deformity with pain and primary osteoarthritis with joint space loss. -Today did discuss the advantages of surgical versus conservative treatment. If he would like to proceed with surgery likely needs a bilateral first MPJ arthrodesis for pain reduction and mobility improvement. Until then which likely will be years away based on our discussion, today did prescribe him a set of custom rigid functional orthotics with a bilateral first MPJ cut out and soft MELITA top-cover. These are medically necessary for years to come. X-rays reviewed. Low medical complexity decision making based on chronicity of his pain. documented in this encounter [facility] 02-18-2021 History of Present illness Narrative [facility] [address] [facility] [address] [facility] [id number] Chief Complaint Patient presents with Left Hand - Follow-up Right Hand - Follow-up Gustavo Johnson returns to the office today for follow-up on bilateral carpal tunnel. He reports that both wrists fused very as they did at his initial visit. He reports they both are equally bad. He continues with pain in bilateral wrists with associated numbness and tingling, this being much worse at night. He has tried conservative treatment measures and unfortunately he has not had any type of relief. He did have his EMGs performed and is here to review the results and discuss further treatment options. The patient's past medical history, surgical history, social history, family history, medications and allergies were reviewed with the patient today and are available in the chart for further review. Allergies Allergen Reactions Menthol Other reaction(s): Unknown ferrara Nsaids (Non-Steroidal Anti-Inflammatory Drug) Other reaction(s): Unknown Facial swelling Current Outpatient Medications: diltiazem (CARDIZEM) 120 MG tablet, Take 120 mg by mouth daily ., Disp: , Rfl: lisinopriL-hydrochlorothiazide (PRINZIDE,ZESTORETIC) 20-25 mg per tablet, Take 2 tablets by mouth daily ., Disp: , Rfl: sildenafiL (VIAGRA) 50 MG tablet, Take 50 mg by mouth daily as needed ., Disp: , Rfl: Past Medical History: Diagnosis Date Hypertension Past Surgical History: Procedure Laterality Date ELBOW SURGERY Right HERNIA REPAIR SHOULDER SURGERY Right Social History Socioeconomic History Marital status: Tobacco Use Smoking status: Former Smoker Smokeless tobacco: Current User ROS: Review of Systems Musculoskeletal: Positive for arthralgias. Neurological: Positive for weakness and numbness. PE: Physical Exam Musculoskeletal: General: Tenderness present. Right wrist: Tenderness present. Left wrist: Tenderness present. Right hand: Decreased strength. Decreased sensation of the median distribution. Normal capillary refill. Normal pulse. Left hand: Decreased strength. Decreased sensation of the median distribution. Normal capillary refill. Normal pulse. Imaging: No new imaging, reviewed from prior visit. EMG on bilateral upper extremities reviewed. Results are electrodiagnostic evidence of bilateral median mononeuropathy at or near the wrists of moderate to severe severity on the right and moderate severity on the left consistent with bilateral carpal tunnel syndrome. There is no evidence of ulnar mononeuropathy brachial plexopathy or radiculopathy affecting either upper extremity. Assessment/Plan: After exam and reviewing the EMG results with the patient we discussed treatment options. I did offer him cortisone injections to bilateral wrist for carpal tunnel. He politely declined these multiple times stating he did not want the injections that he just wanted this fixed. He would like surgery on both at the same time. I did explain that our office would contact him to schedule and that this would be done at [facility]. He verbalizes understanding and is in agreement with this treatment plan. I am happy to see him if needed prior to his surgery. documented in this encounter [facility] 12-23-2020 History of Present illness Narrative Gustavo Alvarengaet 1970 CC: 50 y.o. is a he with bilateral wrist pain and hand numbness Chief Complaint Patient presents with Left Hand - Pain Right Hand - Pain . HPI: Patient presents to the office today with bilateral wrist pain with hand and finger numbness. He reports that this started more than 10 years ago. He has tried otc pain medications as well as bracing at night but that only seemed to make the symptoms worse. He complains of pain, numbness and tingling worse at night, both sides equally painful. He states that during the day the hands are fine but he is noticing that gripping things are more difficult. 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 He is finding that these symptoms are starting to interfere with work. He had an EMG performed years ago and was told at that time that he had bad carpal tunnel. He complains of all his fingers being numb and tingly along with both thumbs.He is tired of the pain and numbness and is ready to have it fixed. He has never had any type of injection for the symptoms. PMH: Allergies Allergen Reactions Menthol Other reaction(s): Unknown ferrara Nsaids (Non-Steroidal Anti-Inflammatory Drug) Other reaction(s): Unknown Facial swelling Current Outpatient Medications: diltiazem (CARDIZEM) 120 MG tablet, Take 120 mg by mouth daily ., Disp: , Rfl: lisinopriL-hydrochlorothiazide (PRINZIDE,ZESTORETIC) 20-25 mg per tablet, Take 2 tablets by mouth daily ., Disp: , Rfl: sildenafiL (VIAGRA) 50 MG tablet, Take 50 mg by mouth daily as needed ., Disp: , Rfl: Past Medical History: Diagnosis Date Hypertension Past Surgical History: Procedure Laterality Date ELBOW SURGERY Right HERNIA REPAIR SHOULDER SURGERY Right Social History Socioeconomic History Marital status: Spouse name: Not on file Number of children: Not on file Years of education: Not on file Highest education level: Not on file Occupational History Not on file Tobacco Use Smoking status: Former Smoker Smokeless tobacco: Current User Substance and Sexual Activity Alcohol use: Not on file Drug use: Not on file Sexual activity: Not on file Other Topics Concern Not on file Social History Narrative Not on file Social Determinants of Health Financial Resource Strain: Difficulty of Paying Living Expenses: Not on file Food Insecurity: Worried About Running Out of Food in the Last Year: Not on file Ran Out of Food in the Last Year: Not on file Transportation Needs: Lack of Transportation (Medical): Not on file Lack of Transportation (Non-Medical): Not on file Physical Activity: Days of Exercise per Week: Not on file Minutes of Exercise per Session: Not on file Stress: Feeling of Stress : Not on file Social Connections: Frequency of Communication with Friends and Family: Not on file Frequency of Social Gatherings with Friends and Family: Not on file Attends Islam Services: Not on file Active Member of Clubs or Organizations: Not on file Attends Club or Organization Meetings: Not on file Marital Status: Not on file Housing Stability: Unable to Pay for Housing in the Last Year: Not on file Number of Places Lived in the Last Year: Not on file Unstable Housing in the Last Year: Not on file ROS: Review of Systems Constitutional: Negative for activity change and fatigue. HENT: Negative for congestion, hearing loss and trouble swallowing. Eyes: Negative for visual disturbance. Respiratory: Negative for chest tightness and shortness of breath. Cardiovascular: Negative for chest pain and palpitations. Gastrointestinal: Negative for abdominal pain, diarrhea, nausea and vomiting. Endocrine: Negative for polydipsia, polyphagia and polyuria. Genitourinary: Negative for decreased urine volume, difficulty urinating and hematuria. Musculoskeletal: Positive for arthralgias. Negative for joint swelling and myalgias. Skin: Negative for color change, rash and wound. Allergic/Immunologic: Negative for immunocompromised state. Neurological: Positive for weakness and numbness. Negative for dizziness and light-headedness. Hematological: Does not bruise/bleed easily. Psychiatric/Behavioral: Negative for confusion and sleep disturbance. The patient is not nervous/anxious. PE: Physical Exam Constitutional: Appearance: He is well-developed. HENT: Head: Normocephalic. Eyes: Pupils: Pupils are equal, round, and reactive to light. Cardiovascular: Rate and Rhythm: Normal rate and regular rhythm. Pulmonary: Effort: Pulmonary effort is normal. Breath sounds: Normal breath sounds. Abdominal: General: Bowel sounds are normal. Palpations: Abdomen is soft. Musculoskeletal: General: Tenderness present. Normal range of motion. Right hand: Tenderness present. Decreased strength. Decreased sensation of the ulnar distribution and median distribution. There is disruption of two-point discrimination. Left hand: Tenderness present. Decreased strength. Decreased sensation of the ulnar distribution and median distribution. There is disruption of two-point discrimination. Cervical back: Normal range of motion and neck supple. Skin: General: Skin is warm and dry. Neurological: Mental Status: He is alert and oriented to person, place, and time. Assessment: pain involving the wrists, tingling/numbness involving the thumbs and fingers, bilaterally and weakness involving the wellness rn, bilaterally reduced sensation along median nerve distribution, + Phalen's maneuver, + Tinel's sign, + thenar atrophy and + weakness of thumb/pinky pincer grasp, bilaterally Imaging:B/L Wrist: no acute fracture or dislocation. No acute osseous abnormality Plan: After examination and reviewing of the patient x-ray images, I am going to order an EMG on bilateral upper extremities. I will see him back for results. He verbalizes understanding and is in agreement with the treatment plan. Diagnosis: Problem List None Mike Salinas CNP documented in this encounter [facility] documented as of this encounter (statuses as of 06/25/2021) [facility]2017 History of Past illness Narrative* Problem Noted Date Resolved Date Morbid obesity due to excess calories 04/17/2016 04/29/2018 documented as of this encounter (statuses as of 07/16/2021) [facility]2017 History of Past illness Narrative* Problem Noted Date Resolved Date Morbid obesity due to excess calories 04/17/2016 04/29/2018 documented as of this encounter (statuses as of 08/05/2021) [facility]2017 History of Past illness Narrative* Problem Noted Date Resolved Date Morbid obesity due to excess calories 04/17/2016 04/29/2018 documented as of this encounter (statuses as of 2021) [address]-2017 History of Past illness Narrative* Problem Noted Date Resolved Date Morbid obesity due to excess calories 04/17/2016 04/29/2018 documented as of this encounter (statuses as of 12/18/2021) [address]2017 History of Past illness Narrative* Problem Noted Date Resolved Date Morbid obesity due to excess calories 04/17/2016 04/29/2018 documented as of this encounter (statuses as of 12/19/2021) [address] History of Past illness Narrative* Problem Noted Date Resolved Date Morbid obesity due to excess calories 04/17/2016 04/29/2018 documented as of this encounter (statuses as of 12/23/2021) [address] History of Past illness Narrative* Problem Noted Date Resolved Date Morbid obesity due to excess calories 04/17/2016 04/29/2018 documented as of this encounter (statuses as of 01/05/2022) [address]2017 History of Past illness Narrative* Problem Noted Date Resolved Date Morbid obesity due to excess calories 04/17/2016 04/29/2018 documented as of this encounter (statuses as of 06/18/2022) [address]2017 History of Past illness Narrative* Problem Noted Date Resolved Date Morbid obesity due to excess calories 04/17/2016 04/29/2018 documented as of this encounter (statuses as of 09/02/2022) [address] History of Past illness Narrative* Problem Noted Date Resolved Date Morbid obesity due to excess calories 04/17/2016 04/29/2018 documented as of this encounter (statuses as of 09/03/2022) [address] History of Past illness Narrative* Problem Noted Date Diagnosed Date Resolved Date Morbid obesity due to excess calories 04/17/2016 04/29/2018 documented as of this encounter (statuses as of 12/22/2022) [address] History of Past illness Narrative* Problem Noted Date Diagnosed Date Resolved Date Morbid obesity due to excess calories 04/17/2016 04/29/2018 documented as of this encounter (statuses as of 01/14/2023) [address] History of Past illness Narrative* Problem Noted Date Diagnosed Date Resolved Date Morbid obesity due to excess calories 04/17/2016 04/29/2018 documented as of this encounter (statuses as of 02/01/2023) [facility] History of Past illness Narrative* Problem Noted Date Diagnosed Date Resolved Date Morbid obesity due to excess calories 04/17/2016 04/29/2018 documented as of this encounter (statuses as of 02/11/2023) [facility] note* Diagnosis Bilateral carpal tunnel syndrome- Primary Carpal tunnel syndrome documented in this encounter [facility] note* Diagnosis Bilateral carpal tunnel syndrome- Primary Carpal tunnel syndrome documented in this encounter [facility] note* Diagnosis Bilateral carpal tunnel syndrome- Primary Carpal tunnel syndrome Bilateral carpal tunnel syndrome- Primary Carpal tunnel syndrome documented in this encounter [facility] note* Diagnosis Primary osteoarthritis of both feet- Primary Bunion of great toe of left foot Bunion Bunion of great toe of right foot Bunion documented in this encounter [facility] note* Diagnosis S/p bilateral carpal tunnel release- Primary documented in this encounter [facility] note* Diagnosis Screening for malignant neoplasm of colon- Primary documented in this encounter [facility] note* Diagnosis Pre-op evaluation- Primary Preoperative examination, unspecified Screening for colon cancer Special screening for malignant neoplasms, colon Essential hypertension Unspecified essential hypertension Sleep apnea, unspecified type Fatty liver Other chronic nonalcoholic liver disease BMI 50.0-59.9, adult (HCC) Body Mass Index 50.0-59.9, adult documented in this encounter [facility] note* Diagnosis Screening for malignant neoplasm of colon documented in this encounter [facility] note* Diagnosis Chest pain, unspecified type- Primary Heartburn documented in this encounter [facility] note* Diagnosis Chest pain, unspecified type documented in this encounter [facility] note* Diagnosis Essential hypertension Unspecified essential hypertension documented in this encounter [facility] note* Diagnosis Well adult exam- Primary Routine general medical examination at a health care facility Essential hypertension Unspecified essential hypertension Respiratory infection Other diseases of respiratory system, not elsewhere classified Nicotine use Screening for prostate cancer Special screening for malignant neoplasm of prostate Obesity, Class III, BMI >= 40 Morbid obesity documented in this encounter [facility] note* Diagnosis Screening for prostate cancer- Primary Special screening for malignant neoplasm of prostate Essential hypertension Unspecified essential hypertension [facility] Sensorineural hearing loss, bilateral- Primary documented in this encounter [facility] for referral (narrative)* Outpatient Procedure (Routine) - Pending Review Specialty Diagnoses / Procedures Referred By Giovany aguila Referred To Contact [facility] Diagnoses Screening for malignant neoplasm of colon Procedures COLONOSCOPY SCREENING COLONOSCOPY FLX DX W/COLLJ SPEC WHEN Justin Red MD [address] [address] [facility] [address] [place] [address] Referral ID Status Reason Start Date Expiration Date Visits Requested Visits Authorized [id number] Pending Review Auto-Generat ed Referral 06/25/2021 06/25/2022 1 1 [facility] for referral (narrative)* Outpatient Procedure (Routine) - Closed Specialty Diagnoses / Procedures Referred By Giovany aguila Referred To Contact Diagnoses Screening for malignant neoplasm of colon Procedures COLONOSCOPY SCREENING COLONOSCOPY FLX DX W/COLLJ SPEC WHEN Justin Red MD [address] [address] [facility] [address] [place] [address] Referral ID Status Reason Start Date Expiration Date V isits Requested Visits Authorized [id number] Closed Auto-Generate d Referral 06/25/2021 04/04/2022 1 1 [facility] for visit Narrative* Auth/Cert Specialty Diagnoses / Procedures Referred By Giovany aguila Referred To Contact Diagnoses Screening for malignant neoplasm of colon Procedures COLONOSCOPY FLX W/REMOVAL OF FOREIGN BODY(S) [facility] [address] [place] [address] Referral ID Status Reason Start Date Expiration Date Visits Re quested Visits Authorized [id number] 1 1 [facility] for visit Narrative* Diagnostic Procedure Only (Routine) - Closed Specialty Diagnoses / Procedures Referred By Giovany aguila Referred To Contact Cardiology / CARD LAB [facility] Diagnoses Chest pain, unspecified EXERCISE STRESS ECG (WITHOUT IMAGING) Chest pain, unspecified type [R07.9] in epic Procedures CV STRS TST XERS&/OR RX CONT ECG W/SI&R STRESS TEST Shilpa Alvarez, [employer] [address] [place] [address] [facility] [address] [place] [address] Referral ID Status Reason Start Date Expiration Date Visits Re quested Visits Authorized [id number] Closed 10/17/2021 04/04/2022 1 1 [facility] Summary Purpose Family History No Family History Records FoundNo Family History Records FoundNo Family History Records FoundNo Family History Records FoundNo Family History Records FoundNo Family History Records FoundNo Family History Records Found Advance Directives No Advanced Directives Records FoundDocuments on File Type Date Recorded Patient Dispatcher Service Or Work Expl anation Advance Directives and Living Will Documents on File Type Date Recorded Patient Dispatcher Service Or Work Expl anation Advance Directives and Livin g Will 02/28/2021 10:09 AM Documents on File Type Date Recorded Patient Dispatcher Service Or Work Expl anation Advance Directive(s) 07/04/2020 12:21 PM Documents on File Type Date Recorded Patient Dispatcher Service Or Work Expl anation Advance Directive(s) 07/14/2021 3:18 PM Advance Directive(s) 07/04/2020 12:21 PM Documents on File Type Date Recorded Patient Dispatcher Service Or Work Expl anation Advance Directive(s) 08/04/2021 8:23 AM Advance Directive(s) 07/14/2021 3:18 PM Advance Directive(s) 07/04/2020 12:21 PM Documents on File Type Date Recorded Patient Dispatcher Service Or Work Expl anation Advance Directive(s) 10/10/2021 3:04 PM Advance Directive(s) 08/04/2021 8:23 AM Advance Directive(s) 07/14/2021 3:18 PM Advance Directive(s) 07/04/2020 12:21 PM Medications Administered Section Inactive Administered Medications - up to 3 most recent administrations Medication Order MAR Action Action Date Dose Rate Site lactated ringers iv infusion 30 mL/hr, INTRAVENOUS, CONTINUOUS, Starting on Wed08/04/21 at 0930, Until Wed08/04/21 at 1040, Preprocedure New Bag/Syringe/Bottle 08/04/2021 9:00 AM EDT 30 mL/hr 30 mL/hr Additional Source Comments (unrecognized sect ion and content) No Status Records FoundNo Status Records FoundNo Status Records FoundNo Status Records FoundNo Status Records FoundNo Status Records FoundNo Status Records Found INFORMATION SOURCE (unrecogn ized section and content) DATE CREATED AUTHOR AUTHOR'S ORGANIZ ATION 12/08/2019 [facility] DATE CREATED AUTHOR AUTHOR'S ORGANIZ ATION 03/09/[address] [facility] DATE CREATED AUTHOR AUTHOR'S ORGANIZ ATION 04/21/2021 [facility] DATE CREATED AUTHOR AUTHOR'S ORGANIZ ATION 01/03/2022 [facility] DATE CREATED AUTHOR AUTHOR'S ORGANIZ ATION 02/13/2023 [facility] DATE CREATED AUTHOR AUTHOR'S ORGANIZ ATION 05/09/2023 [facility] Reason for Visit (unrecogniz ed section and content) Reason Comments Follow-up Reason Comments Foot Orthotics Patient would like n ew orthotics. His previous orthotic are 3 years old. Patient has bunions. States they are not painful. Toes are squished together . Reason Comments Follow-up Suture / Staple Removal Reason Comments Consult colonoscopy Reason Comments Anesthesia Consult Reason Comments Results Reason Comments Patient Question Reason Comments Hypertension 6 month follow up Specialty Diagnoses / Procedures Referred By Giovany aguila Referred To Contact [facility] Department Diagnoses 6 MTH F/U HTN Procedures [id number] Kathleen Hardy, DO [address] [place] [address] [facility] Dept Referral ID Status Reason Start Date Expiration Date Visits Requested Visits Authorized [id number] Canceled Patient Cleared - Qualified 100% FAS 11/20/2021 02/18/2022 99 99 Specialty Diagnoses / Procedures Referred By Giovany t Referred To Contact [facility] Department Diagnoses 6 month follow up htn Procedures 4C EST Self [facility] Dept Referral ID Status Reason Start Date Expiration Date Visits Requested Visits Authorized [id number] Authorized Patient Cleared - Qualified 100% FAS 06/01/2022 08/30/2022 99 99 Reason Comments Forms Durable Medical Equi pment Order Reason Comments Forms Nicholas Recall Repla cement Program Reason Comments cassidy repair Reason Comments Refill Request Reason Comments Problem With Hearing Aid(s) Specialty Diagnoses / Procedures Referred By Giovany aguila Referred To Contact AUDIOLOGY Diagnoses hearing aide worm picker Procedures hearing aide worm picker Oanh Cuellar, AUD [address] [place] [address] Oanh Cuellar, AUD [address] [place] [id number] Referral ID Status Reason Start Date Expiration Date Visits Requested Visits Authorized [id number] Pending Review OON/Self Pay Override 3 07/28/2023 1 1 Reason Comments Appointment Patient was added to schedule patient picked up hearing aides paid 40.00 Care Teams (unrecognized sec tion and content) Wood Die Maker Relationship Specialty Start Date End Date Sheets, Kathleen Leblanc, DO [address] [place] [address] PCP - General Family Medicine 12/23/20 Wood Die Maker Relationship Specialty Start Date End Date SheetsKathleen DO [address] [place] [address] PCP - General Family Medicine 12/23/20 Wood Die Maker Relationship Specialty Start Date End Date SheetsKathleen DO PCP - General 05/28/15 Wood Die Maker Relationship Specialty Start Date End Date SheetsKathleen DO PCP - General 05/28/15 Wood Die Maker Relationship Specialty Start Date End Date SheetsKathleen DO PCP - General 05/28/15 Wood Die Maker Relationship Specialty Start Date End Date SheetsKathleen DO PCP - General 05/28/15 Wood Die Maker Relationship Specialty Start Date End Date SheetsKathleen DO PCP - General 05/28/15 Wood Die Maker Relationship Specialty Start Date End Date SheetsSharlenely Royce DO PCP - General 05/28/15 Wood Die Maker Relationship Specialty Start Date End Date SheetsSharlenely Royce DO PCP - General 05/28/15 Wood Die Maker Relationship Specialty Start Date End Date SheetsGhadaKathleen C DO PCP - General 05/28/15 Wood Die Maker Relationship Specialty Start Date End Date Sheets, Kathleen Crane DO PCP - General 05/28/15 Wood Die Maker Relationship Specialty Start Date End Date SheetsGhadaKathleen C DO PCP - General 05/28/15 Wood Die Maker Relationship Specialty Start Date End Date Ghada Hardyberly Royce PCP - General 05/28/15 Wood Die Maker Relationship Specialty Start Date End Date Antony Kathleen Crane PCP - General 05/28/15 Wood Die Maker Relationship Specialty Start Date End Date Antony Kathleen Crane PCP - General 05/28/15 Wood Die Maker Relationship Specialty Start Date End Date Sheets Kathleen Crane PCP - General 05/28/15 Source Comments (unrecognize d section and content) In the event this informatio n is protected by the Federal Confidentiality of Alcohol and Drug Abuse Patient Records regulations: The Federal rules restrict any use of the information to criminally investigate or prosecute any alcohol or drug abuse patient.[facility] the event this information is protected by the Federal Confidentiality of Alcohol and Drug Abuse Patient Records regulations: The Federal rules restrict any use of the information to criminally investigate or prosecute any alcohol or drug abuse patient.[facility] the event this information is protected by the Federal Confidentiality of Alcohol and Drug Abuse Patient Records regulations: The Federal rules restrict any use of the information to criminally investigate or prosecute any alcohol or drug abuse patient.[facility] the event this information is protected by the Federal Confidentiality of Alcohol and Drug Abuse Patient Records regulations: The Federal rules restrict any use of the information to criminally investigate or prosecute any alcohol or drug abuse patient.[facility] the event this information is protected by the Federal Confidentiality of Alcohol and Drug Abuse Patient Records regulations: The Federal rules restrict any use of the information to criminally investigate or prosecute any alcohol or drug abuse patient.[facility] the event this information is protected by the Federal Confidentiality of Alcohol and Drug Abuse Patient Records regulations: The Federal rules restrict any use of the information to criminally investigate or prosecute any alcohol or drug abuse patient.[facility] the event this information is protected by the Federal Confidentiality of Alcohol and Drug Abuse Patient Records regulations: The Federal rules restrict any use of the information to criminally investigate or prosecute any alcohol or drug abuse patient.[facility] the event this information is protected by the Federal Confidentiality of Alcohol and Drug Abuse Patient Records regulations: The Federal rules restrict any use of the information to criminally investigate or prosecute any alcohol or drug abuse patient.[facility] the event this information is protected by the Federal Confidentiality of Alcohol and Drug Abuse Patient Records regulations: The Federal rules restrict any use of the information to criminally investigate or prosecute any alcohol or drug abuse patient.[facility] the event this information is protected by the Federal Confidentiality of Alcohol and Drug Abuse Patient Records regulations: The Federal rules restrict any use of the information to criminally investigate or prosecute any alcohol or drug abuse patient.[facility] HospitalIn the event this information is protected by the Federal Confidentiality of Alcohol and Drug Abuse Patient Records regulations: The Federal rules restrict any use of the information to criminally investigate or prosecute any alcohol or drug abuse patient.[facility] HospitalIn the event this information is protected by the Federal Confidentiality of Alcohol and Drug Abuse Patient Records regulations: The Federal rules restrict any use of the information to criminally investigate or prosecute any alcohol or drug abuse patient.[facility] HospitalIn the event this information is protected by the Federal Confidentiality of Alcohol and Drug Abuse Patient Records regulations: The Federal rules restrict any use of the information to criminally investigate or prosecute any alcohol or drug abuse patient.[facility] HospitalIn the event this information is protected by the Federal Confidentiality of Alcohol and Drug Abuse Patient Records regulations: The Federal rules restrict any use of the information to criminally investigate or prosecute any alcohol or drug abuse patient.[facility] HospitalIn the event this information is protected by the Federal Confidentiality of Alcohol and Drug Abuse Patient Records regulations: The Federal rules restrict any use of the information to criminally investigate or prosecute any alcohol or drug abuse patient.[facility] FOR RECORDS PERTAINING TO PATIENTS WHO ARE OR HAVE BEEN ENROLLED IN A CHEMICAL DEPENDENCY/SUBSTANCEABUSE PROGRAM, SOME INFORMATION MAY BE OMITTED. This clinical summary was aggregated from multiple sources. Caution should be exercised in using it in the provision of clinical care. This summary normalizes information from multiple sources, and as a consequence, information in this document may materially change the coding, format and clinical context of patient data. In addition, data may be omitted in some cases. CLINICAL DECISIONS SHOULD BE BASED ON THE PRIMARY CLINICAL RECORDS. [facility] provides no warranty or guarantee of the accuracy or completeness of information in this document.
--- OUTSIDE RECORDS SUMMARY | 2023-06-07 13:01 | XMS RPT_ITS | CCD ---
Author Name Unknown Address [address] [place] [address] Organization [facility] Care Team Providers Care Roof Foreman Name Role Phone Antony [facility], [facility]ider MICHAEL CERNA Admitting Unavailab le MICHAEL CERNA Attending Unavailab le SHEETS, [facility] Primary Care Kita vailable SALINASMIKE Attending Unavailable SHEETS, [facility] Primary Care Kita vailable SALINASMIKE Admitting Unavailable SALINAS, MIKE HARRINGTON Referring Unavailable SHEETS, [facility] Primary Care Kita vailable SALINASMIKE Admitting Unavailable SALINAS, MIKE HARRINGTON Referring Unavailable SHEETS, [facility] Primary Care Kita vailable SALINASMIKE THOMPSON Attending Unavailable SHEETS, [facility] Primary Care Kita vailable HUSAM GOODWIN Attending Unavailable SHEETS, [facility] Primary Care Kita vailable MICHAEL CERNA Attending Unavailab le SHEETS, [facility] Primary Care Kita vailable BRUCE JR., SKY Attending Unavailable SHEETS, [facility] Primary Care Kita vailable BRUCE JR., SKY Admitting Unavailable BRUCE JR., SKY Referring Unavailable SHEETS, [facility] Primary Care Kita vailable BRUCE JR., SKY Admitting Unavailable BRUCE JR., SKY Referring Unavailable SHEETS, [facility] Primary Care Kita vailable MICHAEL CERNA Attending Unavailab le SHEETS, [facility] Primary Care Kita vailable BRUCE JR., SKY Attending Unavailable SHEETS, [facility] Primary Care Kita vailable Sheets DO, Kathleen [...] Menthol; Translations: [MENTHOL] Drug Allergy 2 Unknown [facility] (13 sources) Non-steroidal anti-inflammator y agent; Translations: [NSAIDS (NON-STEROIDAL ANTI-INFLAMMATOR Y DRUG)] Propensity to adverse reactions to drug 6 Unknown [facility] (12 sources) Non-steroidal anti-inflammator y agent Propensity to adverse reactions to drug 6 Unknown [facility] Medications Current Medications Medication Drug Class(es) Dates [...] (BMI) 50.0-59.9, adult; Translations: [BMI 50.0-59.9, adult (FORMERLY [facility])] Onset: 02-22-2020 Chronic Other nutritional; endocrine; and metabolic disorders (1 source) Morbid (severe) obesity due to excess calories; Translations: [Obesity, Class III, BMI 40-49.9 (morbid obesity) (FORM[facility])] Onset: 11-19-2017 Chronic Residual codes; unclassified (20 [...] 177.8 cm Kathleen Sheets DO Work Phone: [facility] 06-18-2022 07:58-0400 Body temperature 98.4 [degF] Kathleen Sheets DO Work Phone: [facility] 06-18-2022 07:58-0400 Body weight 166.47 kg Kathleen Sheets DO Work Phone: [facility] 06-18-2022 07:58-0400 Diastolic blood pressure 70 mm[Hg] Kathleen Sheets DO Work Phone: [facility] 06-18-2022 07:58-0400 Heart rate 76 /min Kathleen Sheets DO Work Phone: [facility] 06-18-2022 07:58-0400 Respiratory rate 18 /min Kathleen Sheets DO Work Phone: [facility] 06-18-2022 07:58-0400 SaO2% (BldA) [Mass fraction] 94 % Kathleen Sheets DO Work Phone: [facility] 06-18-2022 07:58-0400 Systolic blood pressure 122 mm[Hg] Kathleen Sheets DO Work Phone: [facility] 12-19-2021 08:00-0400 Body height 177.8 cm Kathleen Sheets DO Work Phone: [facility] 12-19-2021 08:00-0400 Body temperature 98.2 [degF] Kathleen Sheets DO Work Phone: [facility] 12-19-2021 08:00-0400 Body weight 164.29 kg Kathleen Sheets DO Work Phone: [facility] 12-19-2021 08:00-0400 Diastolic blood pressure 72 mm[Hg] Kathleen Sheets DO Work Phone: [facility] 12-19-2021 08:00-0400 Heart rate 80 /min Kathleen Sheets DO Work Phone: [facility] 12-19-2021 08:00-0400 Respiratory rate 18 /min Kathleen Sheets DO Work Phone: [facility] 12-19-2021 08:00-0400 SaO2% (BldA) [Mass fraction] 96 % Kathleen Sheets DO Work Phone: [facility] 12-19-2021 08:00-0400 Systolic blood pressure 120 mm[Hg] Kathleen Hardy DO Work Phone: [facility] 2021 08:24-0400 Body height 177.8 cm Shilpa Kim LEAD GENERATION REPRESENTATIVE.SCALE MANAGER Work Phone: [facility] 2021 08:24-0400 Body temperature 98.2 [degF] Shilpa Kim LEAD GENERATION REPRESENTATIVE.SCALE MANAGER Work Phone: [facility] 2021 08:24-0400 Body weight 160.57 kg Shilpa Kim LEAD GENERATION REPRESENTATIVE.SCALE MANAGER Work Phone: [facility] 2021 08:24-0400 Diastolic blood pressure 60 mm[Hg] Shilpa Kim LEAD GENERATION REPRESENTATIVE.SCALE MANAGER Work Phone: [facility] 2021 08:24-0400 Heart rate 73 /min Shilpa Kim LEAD GENERATION REPRESENTATIVE.SCALE MANAGER Work Phone: [facility] 2021 08:24-0400 Respiratory rate 18 /min Shilpa Kim LEAD GENERATION REPRESENTATIVE.SCALE MANAGER Work Phone: [facility] 2021 08:24-0400 SaO2% (BldA) [Mass fraction] 95 % Shilpa Kim LEAD GENERATION REPRESENTATIVE.SCALE MANAGER Work Phone: [facility] 2021 08:24-0400 Systolic blood pressure 100 mm[Hg] Shilpa Kim LEAD GENERATION REPRESENTATIVE.SCALE MANAGER Work Phone: [facility] 08-04-2021 11:00-0400 Diastolic blood pressure 51 mm[Hg] Justin Whitney MD Work Phone: [facility] 08-04-2021 11:00-0400 Heart rate 76 /min Justin Whitney MD Work Phone: [facility] 08-04-2021 11:00-0400 SaO2% (BldA) [Mass fraction] 97 % Justin Whitney MD Work Phone: [facility] 08-04-2021 11:00-0400 Systolic blood pressure 98 mm[Hg] Justin Whitney MD Work Phone: [facility] 08-04-2021 10:42-0400 Body temperature 98.4 [degF] Justin Whitney MD Work Phone: [facility] 08-04-2021 08:47-0400 Respiratory rate 18 /min Justin Whitney MD Work Phone: [facility] 07-16-2021 08:09-0400 Body height 180.3 cm Pacc 2 Work Phone: [facility] 07-16-2021 08:09-0400 Body temperature 98.2 [degF] Pacc 2 Work Phone: [facility] 07-16-2021 08:09-0400 Body weight 163.29 kg Pacc 2 Work Phone: [facility] 07-16-2021 08:09-0400 Diastolic blood pressure 70 mm[Hg] Pacc 2 Work Phone: [facility] 07-16-2021 08:09-0400 Heart rate 92 /min Pacc 2 Work Phone: [facility] 07-16-2021 08:09-0400 Respiratory rate 18 /min Pacc 2 Work Phone: [facility] 07-16-2021 08:09-0400 SaO2% (BldA) [Mass fraction] 96 % Pacc 2 Work Phone: [facility] 07-16-2021 08:09-0400 Systolic blood pressure 118 mm[Hg] Pacc 2 Work Phone: [facility] 06-25-2021 08:24-0400 Body height 177.8 cm Justin Whitney MD Work Phone: [facility] 06-25-2021 08:24-0400 Body weight 163.29 kg Justin Whitney MD Work Phone: [facility] 06-25-2021 08:24-0400 Diastolic blood pressure 70 mm[Hg] Justin Whitney MD Work Phone: [facility] 06-25-2021 08:24-0400 Heart rate 90 /min Justin Whitney MD Work Phone: [facility] 06-25-2021 08:24-0400 Systolic blood pressure 108 mm[Hg] Justin Whitney MD Work Phone: [facility] 03-07-2021 14:46-0500 Body temperature 98.2 [degF] Sky Bruce Jr., DPM Work Phone: [facility] 03-07-2021 14:46-0500 Diastolic blood pressure 74 mm[Hg] Sky Bruce Jr., DPM Work Phone: [facility] 03-07-2021 14:46-0500 Heart rate 103 /min Sky Bruce Jr., DPM Work Phone: [facility] 03-07-2021 14:46-0500 Systolic blood pressure 120 mm[Hg] Sky Bruce Jr., DPM Work Phone: [facility] 12-23-2020 14:39-0400 Body height 180.3 cm Mike Salinas CNP Work Phone: [facility] 12-23-2020 14:39-0400 Body mass index (BMI) [Ratio] 48.82 kg/m2 Mike Salinas CNP Work Phone: [facility] 12-23-2020 14:39-0400 Body weight 158.76 kg Mike Salinas CNP Work Phone: [facility] Encounters Encounter Date Encounter Type Care Provider Facility Start: 05-04-2023 End: 05-04-2023 ambulatory KATHLEEN C SHEETS Facility:[facility] Start: 01-29-2023 End: 01-29-2023 ambulatory KATHLEEN C SHEETS Facility:[facility] Start: 01-29-2023 End: 01-29-2023 Patient encounter procedure Oanh Cuellar AUD Work Phone: Audiology Procedures Date Procedure Procedure Detail Performing Clinician Start: 12-18-2021 Cv strs tst xers&/or rx cont ecg trcg only Shilpa Gutierrez Kim LEAD GENERATION REPRESENTATIVE.SCALE MANAGER Work Phone: Start: 08-04-2021 Colon ca scrn [...] Start: 09-03-2030 Tetanus vaccination Tetanus: Every 10yrs [facility] Start: 09-03-2030 Urine microalbumin profile [facility] Start: 08-04-2026 Colonoscopy COLONOSCOPY [facility] Start: 08-04-2026 COLORECTAL CANCER SCREENING COLORECTAL CANCER SCREENING [facility] Start: 06-13-2026 Lipid 1996 panel - Serum or Plasma Lipid Screening [facility] Start: 06-13-2026 LIPID SCREEN LIPID SCREEN [facility] Start: 10-10-2024 DIABETES SCREEN DIABETES SCREEN [facility] Start: 10-10-2024 Diabetes Screening Diabetes Screening [facility] Start: 06-13-2024 DIABETES SCREEN DIABETES SCREEN [facility] Start: 06-19-2023 ANNUAL PCP TEAM CHRONIC DISEASE VISIT ANNUAL PCP TEAM CHRONIC DISEASE VISIT [facility] Start: 06-19-2023 BP CONTROLLED (<130/80) BP CONTROLLED (<130/80) [facility] in Start: 01-14-2023 End: 03-16-2023 CBC panel - Blood by Automated count CBC Lab Routine Essential hypertension Expected: 01/14/2023, Expires: 03/16/2023 [facility] Work Phone: Immunizations Immunization Date Immunization Notes Care Provider Ricky joel 09-03-2020 tetanus toxoid, redu robb diphtheria toxoid, and acellular pertussis vaccine, adsorbed Justin Whitney MD Work Phone: [facility] Work Phone: 08-23-2020 tetanus toxoid, redu robb diphtheria toxoid, and acellular pertussis vaccine, adsorbed Justin Whitney MD Work Phone: [facility] 08-01-2020 COVID-19 vaccine, fu ll dose (MODERNA) Justin Whitney MD Work Phone: [facility] 07-04-2020 COVID-19 vaccine (UNSPECIFIED) Justin Whitney MD Work Phone: [facility] 04-05-2010 tetanus toxoid, redu robb diphtheria toxoid, and acellular pertussis vaccine, adsorbed Justin Whitney MD Work Phone: [facility] 11-06-2004 tetanus toxoid, adsorbed Justin Whitney MD Work Phone: [facility] Payers Date Payer Category Payer Unknown [id number] 2020 Unknown [id number]. [id number] 2020 Unknown [id number] 2020 Unknown [id number] 1969 Unknown [id number] 2.16. [id number] 1969 Unknown [id number] 2.16. [id number] 1969 Unknown [id number] 2.16. [id number] 1969 Unknown [id number] 2.16. [id number] 1969 Unknown [id number] 2.16. [id number] 1969 Unknown [id number] 2.16. [id number] 1969 Unknown [id number] 2.16. [id number] 1969 Unknown [id number] 2.16. [id number] 1969 Unknown [id number] 2.16. [id number] 1969 Unknown [id number] 2.16. [id number] 1969 Unknown [id number] 2.16. [id number] 1969 Unknown [id number] 2.16. [id number] Social History Date Type Detail Facility Start: 12-23-2020 End: 07-16-2021 Tobacco smoking status ORIS Ex-smoker [facility] Start: 12-23-2020 Tobacco use and exposure User of smokeless tobacco [facility] Start: 1970 Sex Assigned At Not on file [facility] Start: 06-15-2021 End: 12-18-2021 Exposure to SARS-CoV-2 (event) Not sure [facility] Start: 04-05-1987 End: 04-05-1996 History of tobacco use Current smoker [facility] History of tobacco use Chews Tobacco [facility] Start: 06-25-2021 End: 06-18-2022 Alcohol intake Ex-drinker (finding) [facility] Start: 04-05-1987 End: 04-05-1996 History of tobacco use Cigarette Smoker [facility] Start: 1970 Sex Assigned At Male C [facility] Start: 07-16-2021 End: 04-30-2022 Cigarettes smoked current (pack per day) - Reported 1 [facility] Work Phone: Start: 07-16-2021 Tobacco use and exposure Former smokeless tobacco user [facility] Start: 04-30-2022 End: 06-18-2022 Tobacco use panel [facility] Work Phone: Adult Depression Screening Assessment 0 [facility] Work Phone: Start: 07-14-2021 Gender identity Identifies as male gender (finding) [facility] Clinical Notes 04-17-2016 to 05-04-2023 Oanh Cuellar AUD - 02/01/2023 8:02 AM EDTTelephone Encounter - Zahra Ervin - 01/29/2023 3:29 PM EDTTelephone Encounter - Coby Khan MA - 01/14/2023 11:51 AM EDTPatient Instructions Note Date & Type Note Facility 05-04-2023 Note HNO ID: [id number] Author: KATHLEEN HARDY, DO Service: ? Author [...] [facility] 02-01-2023 Note HNO ID: [id number] Author: Oanh Cuellar AUD Service: ? Author Type: Appliance Mechanic Type: Progress Notes Filed: 02/01/2023 8:03 AM Note Text: HEARING AID REPAIR RIGHT: Bob M70 13T SN: [id number] Plant Protection Guard/Dome: 1M/M-vented Repair: 09/06/2020 LANDD: 09/06/2020 LEFT: Bob M70 13T SN: [id number] Plant Protection Guard/Dome: 1M/M-vented Repair: 09/06/2020 LANDD: 09/06/2020 Patient picked up repaired aids from the front desk officer. Jin was not seen by audiology today. Jin paid the $40.00 fee. Return PRN. Tanesha Dial [facility] 02-01-2023 History of Present illness Narrative HEARING AID REPAIR RIGHT: Bob M70 13T SN: [id number] Plant Protection Guard/Dome: 1M/M-vented Repair: 09/06/2020 L& LEFT: Bob M70 13T SN: [id number] Plant Protection Guard/Dome: 1M/M-vented Repair: 09/06/2020 L& Patient picked up repaired aids from the front desk officer. Jin was not seen by audiology today. Jin paid the $40.00 fee. Return PRN. Tanesha Dial documented in this encounter [facility] 01-29-2023 Miscellaneous Notes Patient came to pharmacy picking tech hearing aide and paid 40.00 we added to your schedule documented in this encounter [facility] 01-14-2023 Miscellaneous Notes PT. Aware. Coby Khan [...] Lindsay Linares MA documented in this encounter [facility] 12-22-2022 Miscellaneous Notes Closed, historical. Drop off,placed in box. documented in this encounter [facility] 09-03-2022 Miscellaneous Notes Nicholas Recall Replacement Program form to get patient a new BIPAP placed in Dr. Hardy green folder to be filled out and signed. Lindsay Linares MA documented in this encounter [facility] 09-01-2022 Miscellaneous Notes Durable Medical Equipment Order placed in Dr. Antony mccarthy folder to be filled out and signed. Lindsay Linares MA documented in this encounter [facility] 06-18-2022 Note HNO ID: [id number] Author: Kathleen Hardy, DO Service: ? Author Type: Physician Type: Progress Notes Filed: 06/18/2022 8:30 AM Note Text: SUBJECTIVE: 51 year old male for annual routine checkup. I have fully reviewed the past medical, surgical, social and family history and updated the Histories section of [facility]. Uses nicotine gum He and his are [...] history and updated the Histories section of [employer]. Uses nicotine gum He and his are [...] Kathleen Hardy DO documented in this encounter [facility] 12-23-2021 Miscellaneous Notes Patient informed ready to pharmacy picking tech at front office. Lindsay Linares MA Letter [...] ordered by Dr. Hardy in previous EHR [facility]. Lindsay Linares MA documented in this encounter [facility] 12-19-2021 History of Present illness Narrative Subjective [...] Kathleen Hardy DO documented in this encounter [facility] 12-18-2021 Miscellaneous Notes Called pt let him know the results Shaylee Pete MA ----- Message from Shilpa Alvarez APRN.SCALE MANAGER sent at 12/18/2021 4:33 PM EDT ----- Normal stress test documented in this encounter [facility] 2021 Instructions Shilpa Alvarez APRN.CNP - 2021 [...] OMEPRAZOLE 20 MG CAPSULE,DELAYED RELEASE Shilpa Alvarez APRN.SCALE MANAGER documented in this encounter [facility] 2021 History of Present illness Narrative This note was created using NoteWriter. Jessica Johnson is a 51 year old male [...] and Reviewed Rhythm: Sinus tachycardia Rate: 110 Dexter: Normal axis Intervals: Normal VT interval QRS Complex: Normal (PVCs present) ST [...] Abs Lymph 1.00 - 4.00 k/uL 2.55 [place]ay% % 5.6 Abs [place] <0.87 k/uL 0.57 Eosin% % 2.0 Abs [...] PCP if persists or worsens Shilpa Alvarez, LEAD GENERATION REPRESENTATIVE.QI I spent a total of 35 minutes on the date of the service which included preparing to see the patient, [id number] patient care, completing clinical documentation, obtaining and/or reviewing separately obtained history, performing a medically appropriate examination, counseling and educating the patient/family/caregiver, ordering medications, tests, or procedures and care coordination (not separately reported). documented in this encounter [facility] 08-04-2021 Hospital Discharge instructions Justin Whitney MD - 08/04/2021 10:41 AM EDT SALES AND MARKETING MANAGER HOMEGOING INSTRUCTIONS [facility] [...] August 04, 2021 documented in this encounter [facility] 08-04-2021 History and physical note UPDATED HISTORY [...] TIME: 10:01 AM documented in this encounter [facility] 07-16-2021 Instructions Marcelle Ocasio APRN.SCALE MANAGER - 07/16/2021 7:58 AM EDT PATIENT PREOPERATIVE INSTRUCTIONS Justin Whitney MD has scheduled you for your procedure at this surgery center: [facility]: [phone] -- [address] [address]. Please read below carefully for your personalized [...] Procedures: - YOU MUST HAVE A RESPONSIBLE LEAD ELECTRICIAN TAKE YOU HOME. A FITTINGS FINISHER OR MIDDLEWARE ENGINEER CANNOT BE MADE A RESPONSIBLE LEAD ELECTRICIAN. - We recommend that a responsible person [...] Advance Directive, please fax a copy to [phone] or email to for it to be [...] Marcelle Ocasio APRN.QI documented in this encounter [facility] 07-16-2021 History and physical note HISTORY AND [...] fevers. Neurological: No history of TIA's, stroke, DISPATCH SPECIALIST tumor, impaired sensorium, hemiplegia, paraplegia or quadraplegia. [...] or any previous visit (from the past [id number] hour(s)). Assessment Essential hypertension Assessment: on rx [...] of difficult airway No abnormal airway history [id number] Score: Age: <65 Sex: Male CHF history: [...] AM PAGER/CONTACT #: documented in this encounter [facility] 06-25-2021 Instructions Justin Whitney MD - 06/25/2021 [...] If you do not have a responsible logging truck driver (family member or friend) with you to take you home, your exam cannot be done with sedation and will be cancelled. Please bring a list of all of your current medications, including any [id number] medications with you. Medications If you take [...] exam. 3 03/2019 documented in this encounter [facility] 06-25-2021 History of Present illness Narrative PROGRESS [...] Justin Whitney MD documented in this encounter [facility] 03-07-2021 History of Present illness Narrative HPI [...] Schmidt who is now retired out of [place]. Last got up a set of orthotics 3 years ago and states he needs a new pair. Also is curious about surgery if it is a possibility. States that he has had bunions for many many years and they are only getting worse with time. Additionally states that he feels quite squished in his toe box. 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 Past Medical History: Diagnosis Date Hypertension MART [...] of his pain. documented in this encounter [facility] 02-18-2021 History of Present illness Narrative [facility] [address] [facility] [address] [facility] [id number] Chief Complaint Patient presents with Left Hand [...] and that this would be done at [facility]. He verbalizes understanding and is in agreement with this treatment plan. I am happy to see him if needed prior to his surgery. 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, bilaterally reduced sensation along median nerve distribution, [...] Mike Salinas CNP documented in this encounter [facility] documented as of this encounter (statuses as of 06/25/2021) [facility] History of Past illness Narrative* Problem Noted Date Resolved Date Morbid obesity due to excess calories 04/17/2016 04/29/2018 documented as of this encounter (statuses as of 07/16/2021) [facility] History of Past illness Narrative* Problem Noted Date Resolved Date Morbid obesity due to excess calories 04/17/2016 04/29/2018 documented as of this encounter (statuses as of 08/05/2021) [facility] History of Past illness Narrative* Problem Noted Date Resolved Date Morbid obesity due to excess calories 04/17/2016 04/29/2018 documented as of this encounter (statuses as of 2021) [address]13-2017 History of Past illness Narrative* Problem Noted Date Resolved Date Morbid obesity due to excess calories 04/17/2016 04/29/2018 documented as of this encounter (statuses as of 12/18/2021) [address]13-2017 History of Past illness Narrative* Problem Noted Date Resolved Date Morbid obesity due to excess calories 04/17/2016 04/29/2018 documented as of this encounter (statuses as of 12/19/2021) [address]13-2017 History of Past illness Narrative* Problem Noted Date Resolved Date Morbid obesity due to excess calories 04/17/2016 04/29/2018 documented as of this encounter (statuses as of 12/23/2021) [address]13-2017 History of Past illness Narrative* Problem Noted Date Resolved Date Morbid obesity due to excess calories 04/17/2016 04/29/2018 documented as of this encounter (statuses as of 01/05/2022) [address]13-2017 History of Past illness Narrative* Problem Noted Date Resolved Date Morbid obesity due to excess calories 04/17/2016 04/29/2018 documented as of this encounter (statuses as of 06/18/2022) [address]13-2017 History of Past illness Narrative* Problem Noted Date Resolved Date Morbid obesity due to excess calories 04/17/2016 04/29/2018 documented as of this encounter (statuses as of 09/02/2022) [address]13-2017 History of Past illness Narrative* Problem Noted Date Resolved Date Morbid obesity due to excess calories 04/17/2016 04/29/2018 documented as of this encounter (statuses as of 09/03/2022) [address]13-2017 History of Past illness Narrative* Problem Noted Date Diagnosed Date Resolved Date Morbid obesity due to excess calories 04/17/2016 04/29/2018 documented as of this encounter (statuses as of 12/22/2022) [address]13-2017 History of Past illness Narrative* Problem Noted Date Diagnosed Date Resolved Date Morbid obesity due to excess calories 04/17/2016 04/29/2018 documented as of this encounter (statuses as of 01/14/2023) [address]13-2017 History of Past illness Narrative* Problem Noted Date Diagnosed Date Resolved Date Morbid obesity due to excess calories 04/17/2016 04/29/2018 documented as of this encounter (statuses as of 02/01/2023) [facility] History of Past illness Narrative* Problem Noted Date Diagnosed Date Resolved Date Morbid obesity due to excess calories 04/17/2016 04/29/2018 documented as of this encounter (statuses as of 02/11/2023) [facility] note* Diagnosis Bilateral carpal tunnel syndrome- Primary Carpal tunnel syndrome documented in this encounter [facility] note* Diagnosis Bilateral carpal tunnel syndrome- Primary Carpal tunnel syndrome documented in this encounter [facility] note* Diagnosis Bilateral carpal tunnel syndrome- Primary Carpal tunnel syndrome Bilateral carpal tunnel syndrome- Primary Carpal tunnel syndrome documented in this encounter [facility] note* Diagnosis Primary osteoarthritis of both feet- Primary Bunion of great toe of left foot Bunion Bunion of great toe of right foot Bunion documented in this encounter [facility] note* Diagnosis S/p bilateral carpal tunnel release- Primary documented in this encounter [facility] note* Diagnosis Screening for malignant neoplasm of colon- Primary documented in this encounter [facility] note* Diagnosis Pre-op evaluation- Primary Preoperative examination, unspecified Screening for colon cancer Special screening for malignant neoplasms, colon Essential hypertension Unspecified essential hypertension Sleep apnea, unspecified type Fatty liver Other chronic nonalcoholic liver disease BMI 50.0-59.9, adult (HCC) Body Mass Index 50.0-59.9, adult documented in this encounter [facility] note* Diagnosis Screening for malignant neoplasm of colon documented in this encounter [facility] note* Diagnosis Chest pain, unspecified type- Primary Heartburn documented in this encounter [facility] note* Diagnosis Chest pain, unspecified type documented in this encounter [facility] note* Diagnosis Essential hypertension Unspecified essential hypertension documented in this encounter [facility] note* Diagnosis Well adult exam- Primary Routine general medical examination at a health care facility Essential hypertension Unspecified essential hypertension Respiratory infection Other diseases of respiratory system, not elsewhere classified Nicotine use Screening for prostate cancer Special screening for malignant neoplasm of prostate Obesity, Class III, BMI >= 40 Morbid obesity documented in this encounter [facility] note* Diagnosis Screening for prostate cancer- Primary Special screening for malignant neoplasm of prostate Essential hypertension Unspecified essential hypertension [facility] Sensorineural hearing loss, bilateral- Primary documented in this encounter [facility] for referral (narrative)* Outpatient Procedure (Routine) - Pending Review Specialty Diagnoses / Procedures Referred By Giovany aguila Referred To Contact [facility] Diagnoses Screening for malignant neoplasm of colon Procedures COLONOSCOPY SCREENING COLONOSCOPY FLX DX W/COLLJ SPEC WHEN Justin Red MD [address] [address] [facility] [address] [place] [address] Referral ID Status Reason Start Date Expiration Date Visits Requested Visits Authorized [id number] Pending Review Auto-Generat ed Referral 06/25/2021 06/25/2022 1 1 [facility] for referral (narrative)* Outpatient Procedure (Routine) - Closed Specialty Diagnoses / Procedures Referred By Giovany aguila Referred To Contact Diagnoses Screening for malignant neoplasm of colon Procedures COLONOSCOPY SCREENING COLONOSCOPY FLX DX W/COLLJ SPEC WHEN Justin Red MD [address] [address] [facility] [address] [place] [address] Referral ID Status Reason Start Date Expiration Date V isits Requested Visits Authorized [id number] Closed Auto-Generate d Referral 06/25/2021 04/04/2022 1 1 [facility] for visit Narrative* Auth/Cert Specialty Diagnoses / Procedures Referred By Giovany aguila Referred To Contact Diagnoses Screening for malignant neoplasm of colon Procedures COLONOSCOPY FLX W/REMOVAL OF FOREIGN BODY(S) [facility] [address] [place] [address] Referral ID Status Reason Start Date Expiration Date Visits Re quested Visits Authorized [id number] 1 1 [facility] for visit Narrative* Diagnostic Procedure Only (Routine) - Closed Specialty Diagnoses / Procedures Referred By Giovany aguila Referred To Contact Cardiology / [facility] Diagnoses Chest pain, unspecified EXERCISE STRESS ECG (WITHOUT IMAGING) Chest pain, unspecified type [R07.9] in epic Procedures CV STRS TST XERS&/OR RX CONT ECG W/SI&R STRESS TEST Shilpa Alvarez, LEAD GENERATION REPRESENTATIVE.SCALE MANAGER [address] [place] [address] [facility] [address] [place] [address] Referral ID Status Reason Start Date Expiration Date Visits Re quested Visits Authorized [id number] Closed 10/17/2021 04/04/2022 1 1 [facility] Summary Purpose Family History No Family History Records FoundNo Family History Records FoundNo Family History Records FoundNo Family History Records FoundNo Family History Records FoundNo Family History Records FoundNo Family History Records Found Advance Directives No Advanced Directives Records FoundDocuments on File Type Date Recorded Patient Force Dispatcher Expl anation Advance Directives and Living Will Documents on File Type Date Recorded Patient Force Dispatcher Expl anation Advance Directives and Livin g Will 02/28/2021 10:09 AM Documents on File Type Date Recorded Patient Force Dispatcher Expl anation Advance Directive(s) 07/04/2020 12:21 PM Documents on File Type Date Recorded Patient Force Dispatcher Expl anation Advance Directive(s) 07/14/2021 3:18 PM Advance Directive(s) 07/04/2020 12:21 PM Documents on File Type Date Recorded Patient Force Dispatcher Expl anation Advance Directive(s) 08/04/2021 8:23 AM Advance Directive(s) 07/14/2021 3:18 PM Advance Directive(s) 07/04/2020 12:21 PM Documents on File Type Date Recorded Patient Force Dispatcher Expl anation Advance Directive(s) 10/10/2021 3:04 PM [...] DATE CREATED AUTHOR AUTHOR'S ORGANIZ ATION 12/08/2019 [facility] DATE CREATED AUTHOR AUTHOR'S ORGANIZ ATION 03/09/2021 [facility] DATE CREATED AUTHOR AUTHOR'S ORGANIZ ATION 04/21/2021 [facility] DATE CREATED AUTHOR AUTHOR'S ORGANIZ ATION 01/03/2022 [facility] DATE CREATED AUTHOR AUTHOR'S ORGANIZ ATION 02/13/2023 [facility] DATE CREATED AUTHOR AUTHOR'S ORGANIZ ATION 05/09/2023 [facility] Reason for Visit (unrecogniz ed section [...] Department Diagnoses 6 MTH F/U HTN Procedures [id number] Kathleen Hardy, DO [address] [place] [address] [facility] Dept Referral ID Status Reason Start Date Expiration Date Visits Requested Visits Authorized [id number] Canceled Patient Cleared - Qualified 100% FAS 11/20/2021 02/18/2022 99 99 Specialty Diagnoses / Procedures Referred By Giovany t Referred To Contact [facility] Department Diagnoses 6 month follow up htn Procedures 4C EST Self [facility] Dept Referral ID Status Reason Start Date Expiration Date Visits Requested Visits Authorized [id number] Authorized Patient Cleared - Qualified 100% FAS 06/01/2022 08/30/2022 99 99 Reason Comments Forms Durable Medical Equi pment Order Reason Comments Forms Nicholas Recall Repla cement Program Reason Comments cassidy repair Reason Comments Refill Request Reason Comments Problem With Hearing Aid(s) Specialty Diagnoses / Procedures Referred By Giovany aguila Referred To Contact AUDIOLOGY Diagnoses hearing aide pharmacy picking tech Procedures hearing aide pharmacy picking tech Oanh Cuellar, AUD [address] [place] [address] Oanh Cuellar, AUD [address] [place] [id number] Referral ID Status Reason Start Date Expiration Date Visits Requested Visits Authorized [id number] Pending Review OON/Self Pay Override 3 07/28/2023 1 1 Reason Comments Appointment Patient was added to schedule patient picked up hearing aides paid 40.00 Care Teams (unrecognized sec tion and content) Roof Foreman Relationship Specialty Start Date End Date Sheets, Kathleen Leblanc, DO [address] [place] [address] PCP - General Family Medicine 12/23/20 Roof Foreman Relationship Specialty Start Date End Date SheetsKathleen DO [address] [place] [address] PCP - General Family Medicine 12/23/20 Roof Foreman Relationship Specialty Start Date End Date SheetsKathleen DO PCP - General 05/28/15 Roof Foreman Relationship Specialty Start Date End Date SheetsKathleen DO PCP - General 05/28/15 Roof Foreman Relationship Specialty Start Date End Date SheetsKathleen DO PCP - General 05/28/15 Roof Foreman Relationship Specialty Start Date End Date SheetsKathleen DO PCP - General 05/28/15 Roof Foreman Relationship Specialty Start Date End Date SheetsKathleen DO PCP - General 05/28/15 Roof Foreman Relationship Specialty Start Date End Date SheetsSharlenely Royce DO PCP - General 05/28/15 Roof Foreman Relationship Specialty Start Date End Date SheetsSharlenely Royce DO PCP - General 05/28/15 Roof Foreman Relationship Specialty Start Date End Date SheetsGhadaKathleen C DO PCP - General 05/28/15 Roof Foreman Relationship Specialty Start Date End Date Sheets, Kathleen Crane DO PCP - General 05/28/15 Roof Foreman Relationship Specialty Start Date End Date SheetsGhadaKathleen C DO PCP - General 05/28/15 Roof Foreman Relationship Specialty Start Date End Date Ghada Hardyberly Royce PCP - General 05/28/15 Roof Foreman Relationship Specialty Start Date End Date Antony Kathleen Crane PCP - General 05/28/15 Roof Foreman Relationship Specialty Start Date End Date Antony Kathleen Crane PCP - General 05/28/15 Roof Foreman Relationship Specialty Start Date End Date Sheets Kathleen Crane PCP - General 05/28/15 Source Comments (unrecognize d section and content) In the event this informatio n is protected by the Federal Confidentiality of Alcohol and Drug Abuse Patient Records regulations: The Federal rules restrict any use of the information to criminally investigate or prosecute any alcohol or drug abuse patient.[facility] the event this information is protected by the Federal Confidentiality of Alcohol and Drug Abuse Patient Records regulations: The Federal rules restrict any use of the information to criminally investigate or prosecute any alcohol or drug abuse patient.[facility] the event this information is protected by the Federal Confidentiality of Alcohol and Drug Abuse Patient Records regulations: The Federal rules restrict any use of the information to criminally investigate or prosecute any alcohol or drug abuse patient.[facility] the event this information is protected by the Federal Confidentiality of Alcohol and Drug Abuse Patient Records regulations: The Federal rules restrict any use of the information to criminally investigate or prosecute any alcohol or drug abuse patient.[facility] the event this information is protected by the Federal Confidentiality of Alcohol and Drug Abuse Patient Records regulations: The Federal rules restrict any use of the information to criminally investigate or prosecute any alcohol or drug abuse patient.[facility] the event this information is protected by the Federal Confidentiality of Alcohol and Drug Abuse Patient Records regulations: The Federal rules restrict any use of the information to criminally investigate or prosecute any alcohol or drug abuse patient.[facility] the event this information is protected by the Federal Confidentiality of Alcohol and Drug Abuse Patient Records regulations: The Federal rules restrict any use of the information to criminally investigate or prosecute any alcohol or drug abuse patient.[facility] the event this information is protected by the Federal Confidentiality of Alcohol and Drug Abuse Patient Records regulations: The Federal rules restrict any use of the information to criminally investigate or prosecute any alcohol or drug abuse patient.[facility] the event this information is protected by the Federal Confidentiality of Alcohol and Drug Abuse Patient Records regulations: The Federal rules restrict any use of the information to criminally investigate or prosecute any alcohol or drug abuse patient.[facility] the event this information is protected by the Federal Confidentiality of Alcohol and Drug Abuse Patient Records regulations: The Federal rules restrict any use of the information to criminally investigate or prosecute any alcohol or drug abuse patient.[facility] the event this information is protected by the Federal Confidentiality of Alcohol and Drug Abuse Patient Records regulations: The Federal rules restrict any use of the information to criminally investigate or prosecute any alcohol or drug abuse patient.[facility] the event this information is protected by the Federal Confidentiality of Alcohol and Drug Abuse Patient Records regulations: The Federal rules restrict any use of the information to criminally investigate or prosecute any alcohol or drug abuse patient.[facility] the event this information is protected by the Federal Confidentiality of Alcohol and Drug Abuse Patient Records regulations: The Federal rules restrict any use of the information to criminally investigate or prosecute any alcohol or drug abuse patient.[facility] the event this information is protected by the Federal Confidentiality of Alcohol and Drug Abuse Patient Records regulations: The Federal rules restrict any use of the information to criminally investigate or prosecute any alcohol or drug abuse patient.[facility] the event this information is protected by the Federal Confidentiality of Alcohol and Drug Abuse Patient Records regulations: The Federal rules restrict any use of the information to criminally investigate or prosecute any alcohol or drug abuse patient.[facility] FOR RECORDS PERTAINING TO PATIENTS WHO ARE [...] BE BASED ON THE PRIMARY CLINICAL RECORDS. [facility]. provides no warranty or guarantee of the accuracy or completeness of information in this document.
[2023-06-07 13:14] LABS: Hematocrit 44.6 % (40-54); Hemoglobin 15.6 g/dL (13.0-16.5); Mean Corpuscular Hgb 31.1 pg (27.0-32.0); Platelet Count 298 K/mm3 (150-450); RBC Distribution Width CV 12.9 % (11.6-14.6); RBC Distribution Width SD 41.7 fl (35.1-43.9); Red Blood Count 5.01 M/mm3 (4.6-6.2); White Blood Count 9.7 K/mm3 (4.4-11.0)
[2023-06-07 13:44] LABS: ALB/GLOB Ratio 1.1 RATIO (0.9-2.4); AST(SGOT) 29 U/L (15-37); Alanine Aminotransfer ALT/SGPT 61 U/L (16-61); Albumin, Serum 3.9 g/dL (3.2-5.0); Alkaline Phosphatase 59 U/L (45-117); Anion Gap 6 (5-15); BUN 15 mg/dL (7-18); Calcium,Total 9.7 mg/dL (8.5-10.1); Chloride 105 mmol/L (98-107); Cholesterol 198 mg/dL (200); EST Glomerular Filtration Rate 83 mL/min (>60); Est Glom Filt Rate - Afr Amer 100 mL/min (>60); Globulin 3.6 g/dL (2.2-4.2); Glucose 106 mg/dL (74-106); High Density Lipoprotein 54 mg/dL; PSA,Total - Annual Screen 0.07 ng/mL (0.00-4.00); Potassium 4.2 mmol/L (3.5-5.1); Protein, Total 7.5 g/dL (6.4-8.2); Sodium Level 136 mmol/L (136-145); Triglycerides 116 mg/dL; Very Low Density Lipoprotein 23 mg/dL (5-40)
== END | disposition home or self-care (01) ==
LOC: LAB 12:38
PROVIDERS: PCP Family Medicine; Referring Provider Family Medicine; Visit Provider Family Medicine
DX: I10 Essential (primary) hypertension (principal); Z12.5 Encounter for screening for malignant neoplasm of prostate
CPT/HCPCS: 36415; 80053; 80061; 84153; 85027; G0103

== ENCOUNTER 2025-02-14 08:30 | Outpatient (RCR) | payer OTHER, SELFPAY | END 2025-03-04 23:59 | LOC: NS 08:30 | PROVIDERS: PCP Family Medicine; Referring Provider Internal Medicine; Visit Provider Internal Medicine | DX: Z71.3 Dietary counseling and surveillance (principal); R73.01 Impaired fasting glucose; E66.01 Morbid (severe) obesity due to excess calories | CPT/HCPCS: 97802 ==